=== PATIENT | male | born 1960 | race Caucasian/White ===

== ENCOUNTER 2017-09-28 18:02 | Emergency (ER) | payer MEDICARE ==
[~2017-09-28 18:02] MED LIST: FLUO10CA13 PO
--- NOTE | 2017-09-28 19:04 | RAD ---
Indication: Trauma. TECHNIQUE: CT head without IV contrast. CT maxillofacial bones without IV contrast. COMPARISON: None FINDINGS: CT HEAD: No pathologic extra-axial or intra-axial fluid collection. The ventricles and basal cisterns are within normal limits. No acute intracranial bleed. Mild diffuse cerebral and cerebellar atrophy. No focal loss of jefferson-white differentiation. No calvarial fractures. IMPRESSION: 1. No acute intracranial process on this noncontrast CT. 2. Mild diffuse atrophy. CT maxillofacial bones: No acute fractures. The lenses, globes, extraocular muscles and intraorbital fat are within normal limits. Soft tissue swelling and induration is seen superior to the right zygomatic arch. Inflammatory changes seen anterior to the right maxilla. The mandible and temporal mandibular joints are within normal limits. Mucous retention cyst or polyps are seen in the bilateral maxillary sinuses. Rest of the paranasal sinuses and mastoid air cells are clear. Visualized upper cervical spine is within normal limits. No bulky adenopathy. IMPRESSION: 1. Soft tissue swelling and induration superior to the right zygomatic arch and anterior to the right maxilla. 2. No fractures. 3. Bilateral maxillary sinus disease. Electronically signed by: Dany Davis DO (09/28/2017 7:01 PM) [facility]
[2017-09-28] MEDS ORDERED: NAPR-683 PO (19:23)
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
[2017-09-28] MEDS ORDERED: HYDROcodone/APAP 5/325MG 1 TAB TABLET PO ONE (19:30)
[2017-09-28 19:40] VITALS: BP 127/100
== END 2017-09-28 19:40 | disposition home or self-care (01) ==
LOC: ER 18:02
DX: S00.83XA Contusion of other part of head, initial encounter (principal); I10 Essential (primary) hypertension; I25.2 Old myocardial infarction; F17.210 Nicotine dependence, cigarettes, uncomplicated; Y04.0XXA Assault by unarmed brawl or fight, initial encounter; Y93.89 Activity, other specified; Y99.8 Other external cause status; Y92.89 Other specified places as the place of occurrence of the external cause
CPT/HCPCS: 70450; 70486; 99284-25

== ENCOUNTER 2021-03-20 08:22 | Emergency (ER) | payer MEDICARE ==
[~2021-03-20] VITALS: Ht 182.9 cm; Wt 90.9 kg
[~2021-03-20 08:22] MED LIST changes: +NAPR-683 PO
--- NOTE | 2021-03-20 08:43 | PHYS DOC ---
Past History Past Medical History: Hypertension, AL, Other Past Surgical History: No Surgical History Smoking: Cigarettes Alcohol Use: None Drug Use: None General Adult EDM: Chief Complaint: ALCOHOL INTOXICATION HPI: HPI: 60-year-old male presents via EMS for alcohol intoxication and chest pain. Patient has been drinking alcohol to the least midnight. His neighbor called EMS because he thought the patient was acting weird. Patient tells me that he has been falling a lot lately. He also had some chest discomfort this morning when EMS arrived. He was given 324 of aspirin. He tells me he is supposed to be on heart medications but does not taking any. He does not know what they are. 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 He denies stents or bypass. He has bruising near the right eye and the right shoulder that he states happened because of his falling. This bruising happened 2 days ago. Review of Systems: Review of Systems: Constitutional: Denies fever or chills. Intoxication. Eyes: Denies change in visual acuity HENT: Denies nasal congestion or sore throat Respiratory: Denies cough or shortness of breath Cardiovascular: Chest pain GI: Denies abdominal pain, nausea, vomiting, bloody stools or diarrhea : Denies dysuria Musculoskeletal: Denies back pain or joint pain Integument: Denies rash Neurologic: Denies headache, focal weakness or sensory changes Endocrine: Denies polyuria or polydipsia Lymphatic: Denies swollen glands Psychiatric: Intoxicated Current Medications: Current Meds: Current Medications Medications (Trade) Dose Ordered Sig/Amy Start Time Stop Time Status Last Admin Dose Admin Multivitamins/ Minerals 10 ml/ Folic Acid 1 mg/ Thiamine HCl 100 mg/Sodium Chloride 1,011.3 ml @ 1,000.187 mls/hr 1X ONCE 03/20/21 08:45 03/20/21 09:45 UNV Allergies: Allergies: Allergies Coded Allergies Type Severity Reaction Last Updated Verified No Known Drug Allergies 10/08/13 No Physical Exam: PE: Constitutional: Well developed, well nourished, no acute distress, intoxicated. [] HENT: Normocephalic, atraumatic, bilateral external ears normal, oropharynx moist, no oral exudates, nose normal. [] Eyes: PERRLA, EOMI, conjunctiva normal, no discharge. [] Neck: Normal range of motion, no tenderness, supple, no stridor. [] Cardiovascular: Heart rate 100, regular rhythm, no murmur [] Lungs & Thorax: Bilateral breath sounds clear to auscultation [] Abdomen: Bowel sounds normal, soft, no tenderness, no masses, no pulsatile masses. [] Skin: Ecchymosis of the right superior humerus and below the right eye [] Back: No tenderness, no CVA tenderness. [] Extremities: No tenderness, no cyanosis, no clubbing, ROM intact, no edema. [] Neurologic: Alert and oriented X 3, normal motor function, normal sensory function, no focal deficits noted. [] Psychologic: Affect intoxicated, mood normal. [] EKG: EKG: Sinus rhythm, rate 95, leftward axis, no ST elevation or depression. [] Radiology/Procedures: Radiology/Procedures: [] Heart Score: C/O Chest Pain: Yes HEART Score for Chest Pain: HEART Score for Chest Pain Response (Comments) Value History Slighlty/Non-Suspicious 0 Age >45 - < 65 1 Risk Factors 1 or 2 Risk Factors 1 Total 2 Risk Factors: Risk Factors: DM, Current or recent (<one month) smoker, HTN, HLP, family history of CAD, obesity. Risk Scores: Score 0 - 3: 2.5% MACE over next 6 weeks - Discharge Home Score 4 - 6: 20.3% MACE over next 6 weeks - Admit for Clinical Observation Score 7 - 10: 72.7% MACE over next 6 weeks - Early Invasive Strategies Course & Med Decision Making: Course & Med Decision Making Pertinent Labs and Imaging studies reviewed. (See chart for details) The patient appears to be quite intoxicated. I have ordered a banana bag. His labs are significant for potassium of 2.9. I ordered additional 40 mEq p.o. prior to discharge. The patient's alcohol level is just under 400. We will observe him in the emergency room while giving supportive care and fluids until he is clinically sober and able to ambulate on his own. The patient is able to ambulate on his own at this time. He has been in the ER for several hours. He would like to go home. He is stable for discharge at this time. We will send him home by taxi. [] Dragon Disclaimer: Dragon Disclaimer: This electronic medical record was generated, in whole or in part, using a voice recognition dictation system. Departure Departure: Impression: Primary Impression: Alcohol intoxication delirium Disposition: 01 HOME / SELF CARE / HOMELESS Condition: IMPROVED Referrals: MARTINE ARCHULETA MD (PCP) Patient Instructions: Alcohol Intoxication, [id number] PRAMOD FERRELL DO Mar 20, 2021 08:43
[2021-03-20 08:56] LABS: BASO # 0.1 x10^3/uL (0.0-0.2); BASO % 2 % (0-3); EOS # 0.3 x10^3/uL (0.0-0.7); EOS % 5 % (0-3); HEMATOCRIT 41.8 % (39.0-53.0); HEMOGLOBIN 14.4 g/dL (13.0-17.5); LYMPH # 2.8 x10^3/uL (1.0-4.8); LYMPH % 45 % (24-48); MEAN CORPUSCULAR HEMOGLOBIN 35 pg (25-35); MEAN CORPUSCULAR HGB CONC 35 g/dL (31-37); MEAN CORPUSCULAR VOLUME 101 fL (79-100); MONO # 0.8 x10^3/uL (0.0-1.1); MONO % 12 % (0-9); NEUT # 2.2 x10^3uL (1.8-7.7); NEUT % 35 % (31-73); PLATELET COUNT 218 x10^3/uL (140-400); RED BLOOD COUNT 4.15 x10^6/uL (4.30-5.70); RED CELL DISTRIBUTION WIDTH 13.5 % (11.5-14.5); WHITE BLOOD COUNT 6.2 x10^3/uL (4.0-11.0)
[2021-03-20] MEDS: MVI, ADULT NO.4 WITH VIT K 10 ML, FOLIC ACID INJ 1 MG, THIAMINE INJ 100 MG in IV NORMAL... IV ONE (09:20)
--- NOTE | 2021-03-20 09:20 | RAD ---
Exam performed: One view chest. Indication: Reason: CP / Spl. Instructions: / History: Date of Service: 03/20/2021 8:35 AM Comparison: None available. Single AP upright portable view chest findings: Cardiomediastinal silhouette is within limits of normal. No acute infiltrates, effusion or pneumotho rax is detected. The bony structures are normal. Impression: No acute cardiopulmonary process is detected. Electronically signed by: Dominga Hare MD (03/20/2021 9:17 AM) [id number]
--- NOTE | 2021-03-20 09:39 | RAD ---
STUDY: 1. CT head without contrast 2. CT maxillofacial without contrast INDICATION: Fall. Intoxication. COMPARISON: 09/28/2017 TECHNIQUE: Axial CT imaging of the head and maxillofacial structures performed without the use of int ravenous contrast. Sagittal and coronal reformats were obtained. One or more of the following individualized dose reduction techniques were utilized for this examinat ion: 1. Automated exposure control 2. Adjustment of the mA and/or kV according to patient size 3. Use of iterative reconstruction technique. FINDINGS: CT HEAD: No acute intracranial hemorrhage. No localized mass effect, midline shift or hydrocephalus. Moss-whit e matter differentiation is maintained. Somewhat age advanced generalized parenchymal volume loss but unchanged from the comparison. No depressed calvarial fracture. Normally aerated mastoid air cells and middle ears. CT MAXILLOFACIAL: No acute facial bone fracture. The orbital rims are intact. Symmetric positioning of the globes. No r etrobulbar hematoma. Premalar hematoma on the right. The partially imaged deeper spaces of the neck are unremarkable. No l ayering hemorrhage within the paranasal sinuses. Maxillary sinus mucosal thickening. Anatomic temporo mandibular joint alignment. The partially assessed upper cervical spine is intact. IMPRESSION: CT HEAD: 1. No acute intracranial abnormality by CT. Intact calvarium. CT MAXILLOFACIAL: 1. No acute facial bone fracture. 2. Premalar hematoma on the right. Unremarkable globes and retrobulbar soft tissues. Electronically signed by: TOY RODAS MD (03/20/2021 9:36 AM) [id number]
[2021-03-20 09:51] LABS: ALBUMIN 3.9 g/dL (3.4-5.0); CALCIUM 8.7 mg/dL (8.5-10.1); CREATININE 0.8 mg/dL (0.7-1.3); GFR 99.3; TOTAL BILIRUBIN 0.5 mg/dL (0.2-1.0); TOTAL PROTEIN 7.8 g/dL (6.4-8.2)
[2021-03-20 10:04] LABS: POTASSIUM 2.9 mmol/L (3.5-5.1)
[2021-03-20 10:34] LABS: BARBITURATES NEG (NEG); BENZODIAZEPINES NEG (NEG); CANNABINOIDS NEG (NEG); COCAINE NEG (NEG); METHADONE NEG (NEG); OPIATES NEG (NEG); PHENCYCLIDINE NEG (NEG)
[2021-03-20 10:35] LABS: AMPHETAMINE/METHAMPHETAMINE NEG (NEG)
[2021-03-20 10:37] LABS: BACTERIA,URINE 0 /HPF (0-FEW); BILIRUBIN,URINE NEG (NEG); CLARITY,URINE CLEAR; COLOR,URINE YELLOW; GLUCOSE,URINE NEG (NEG); NITRITE,URINE NEG (NEG); RBC,URINE 0 /HPF (0-2); SQUAMOUS EPITHELIAL CELL,UR OCC /LPF; UROBILINOGEN,URINE 0.2 mg/dL (0.2 mg/dL); WBC,URINE OCC /HPF (0-4)
[2021-03-20] MEDS: POTASSIUM CHLORIDE 20 MEQ TABLET.ER. PO ONE (12:55)
[2021-03-20 13:10] VITALS: BP 124/72
--- NOTE | 2021-03-20 19:47 | EKG ---
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
== END 2021-03-20 13:10 | disposition home or self-care (01) ==
LOC: ER 08:22
DX: F10.121 Alcohol abuse with intoxication delirium (principal); I10 Essential (primary) hypertension; F17.210 Nicotine dependence, cigarettes, uncomplicated; Y90.8 Blood alcohol level of 240 mg/100 ml or more
CPT/HCPCS: 36415; 70450; 70486; 71045; 80053; 80307; 81001; 84484; 85025; 93005; 96365; 99285; G0480; J7030

== ENCOUNTER 2021-03-23 23:27 | Emergency (ER) | payer MEDICARE ==
[~2021-03-23] VITALS: Ht 182.9 cm; Wt 90.9 kg
[2021-03-23] MEDS: MVI, ADULT NO.4 WITH VIT K 10 ML, THIAMINE INJ 100 MG in IV NORMAL SALINE 1,000ML 1,000... IV ONE (00:27)
--- NOTE | 2021-03-24 | PHYS DOC ---
Past History Past Medical History: Alcoholism, Hypertension, CT, Seizure (withdrawal (DTs)), Other Past Medical History Limited secondary to alcohol intoxication Past Surgical History: No Surgical History Past Surgical History Limited secondary to alcohol intoxication Smoking: Cigarettes Alcohol Use: Heavy Drug Use: None Social History Limited secondary to alcohol intoxication General Adult EDM: Chief Complaint: ALCOHOL INTOXICATION HPI: HPI: 60-year-old male presents via EMS with report of chest discomfort. Per EMS patient acutely intoxicated. Patient does history of alcohol abuse. Patient reportedly called EMS 33 times this evening. Patient reports he is out of his medications for the last 3 months. Patient reports he has not followed with a doctor in at least 6 months. Patient reports he has no transportation or money. Patient reports he has been trying to walk to get groceries and subsequently has fallen and injured his face. Patient reports he is not able to walk well. Patient reports he lives on a second floor and has difficulty getting up stairs. Patient denies use of blood thinners. Reports history of withdrawal seizures. History of present illness limited secondary to alcohol intoxication. Review of Systems: Review of Systems: Constitutional: Denies fever or chills Eyes: Denies redness or eye pain HENT: Denies nasal congestion or epistaxis Respiratory: Denies cough or shortness of breath Cardiovascular: Reports chest pain GI: Denies vomiting Musculoskeletal: Denies neck pain Integument: Reports facial bruising and swelling Neurologic: Reports headache and generalized weakness Review of systems limited secondary to alcohol intoxication Current Medications: Current Meds: Current Medications Medications (Trade) Dose Ordered Sig/[facility] Start Time Stop Time Status Last Admin Dose Admin Aspirin (Kenneth Aspirin) 325 mg 1X ONCE 03/23/21 23:45 03/23/21 23:46 DC Folic Acid (Folic Acid) 1 mg ONCE ONCE 03/23/21 23:45 03/23/21 23:46 DC Multivitamins/ Minerals 10 ml/ Thiamine HCl 100 mg/Sodium Chloride 1,011.3 ml @ 1,000.187 mls/hr 1X ONCE 03/23/21 23:45 03/24/21 00:45 Allergies: Allergies: Allergies Coded Allergies Type Severity Reaction Last Updated Verified No Known Drug Allergies 10/08/13 No Physical Exam: PE: Constitutional: Well developed, well nourished, no acute distress, non-toxic appearance, intoxicated HENT: Normocephalic, scattered facial bruising primary to right cheek, nares no rmal, bilateral mastoid process negative Eyes: PERRL, EOMI, conjunctiva injected bilaterally, no discharge, horizontal nystagmus Neck: No midline tenderness, supple Lungs & Thorax: No respiratory distress, equal chest rise and fall Abdomen: Soft, no tenderness; pelvis stable and nontender Skin: Warm, dry, no erythema, no rash Back: No midline tenderness, no CVA tenderness Extremities: No tenderness, ROM intact, no edema Neurologic: Alert but acutely intoxicated, normal motor function, normal sensory function, no focal deficits noted Psychologic: Affect animated, judgment abnormal EKG: EKG: @2340 NSR at 89bpm, NO ST elevation, QRS 84ms, QT/QTc 378/461ms Radiology/Procedures: Radiology/Procedures: PROCEDURE: PORTABLE CHEST 1V Single view chest dated 03/24/2021 12:02 AM: COMPARISON: 03/20/2021 Clinical Indication: Chest pain. Findings: Single upright portable exam of the chest was performed. Heart and mediastinal contours are stable. There is some mild patchy increased density at the right lung base, mildly increased from prior study. Prominent reticular nodular markin gs on the left have somewhat improved. No pleural effusion. No pneumothorax. IMPRESSION: 1. Mild patchy bibasilar opacities, similar to prior study, likely scar or atelectasis. No evidence of focal pneumonia. Electronically signed by: Vishnu Coats MD (03/24/2021 12:03 AM) [facility] PROCEDURE: CT MAXILLOFACIAL WITHOUT CONTRAST, CT HEAD AND C-SPINE WO Comparison: None. Clinical Indication: Reason: pain s/p fall, ETOH / Spl. Instructions: / History: . PAIN AFTER FALL Technical factors: Contiguous 5 mm axial images of the head were obtained from the skullbase to the vertex. No contrast was administered. In addition, 3 mm axial images of the cervical spine and maxillofacial bones were acquired with thin cut coronal and sagittal reconstructions. One or more of the following individualized dose reduction techniques were utilized for this examination: 1. Automated exposure control 2. Adjustment of the mA and/or kV according to patient size 3. Use of iterative reconstruction technique Findings head: Ventricles and sulci are mildly prominent for age. No midline shift or mass effect. Mild patchy low density in the deep/subcortical periventricular white matter. No hemorrhage or extra-axial collection. There is some vague low density in the central james. Posterior fossa unremarkable. No acute calvarial abnormality. IMPRESSION HEAD: 1. No acute intracranial hemorrhage or mass. 2. Mild chronic small vessel ischemic changes and atrophy. 3. There is some vague low density in the central james which could be related to chronic small vessel ischemic changes or central pontine myelolysis. Correlate clinically. Findings maxillofacial: Moderate mucosal thickening of the maxillary and ethmoid sinuses. Frontal and sphenoid sinuses are clear. Mastoid air cells are clear. No acute calvarial abnormality. Ostiomeatal units are patent. Orbital and maxillary persaud are intact. No displaced facial fracture. Zygomatic arches and mandible are intact. Slight deformity of the bilateral nasal bone without overlying soft tissue swelling, likely related to old healed fracture. There is a focal area of soft tissue swelling at the right cheek, likely a small hematoma measuring about 2.9 cm. Visualized soft tissue structures are otherwise unremarkable. IMPRESSION MAXILLOFACIAL: 1. Focal soft tissue hematoma at the right cheek with no evidence of underlying displaced facial fracture. 2. Moderate sinus disease. 3. Probable remote fracture of the bilateral nasal bone. Findings cervical spine: Images were acquired from the skull base to mid T4. There is straightening of the normal cervical lordosis, otherwise sagittal alignment is anatomic. Vertebral body heights are maintained. No prevertebral soft tissue swelling. Posterior elements are intact. No fractures are identified. Mild endplate hypertrophic changes throughout with multilevel mild to moderate uncovertebral spurring. Mild multilevel facet arthropathy. There is resultant mild bilateral foraminal narrowing at C4-C5. No apparent focal disc herniation o r significant central canal compromise. Visualized soft tissue structures are unremarkable. Limited images of lung apices are clear. IMPRESSION CERVICAL SPINE: 1. No evidence of fracture or malalignment. 2. Mild multilevel spondylosis. Electronically signed by: Vishnu Coats MD (03/24/2021 12:58 AM) [facility] Heart Score: C/O Chest Pain: Yes HEART Score for Chest Pain: HEART Score for Chest Pain Response (Comments) Value History Slighlty/Non-Suspicious 0 ECG Normal 0 Age >45 - < 65 1 Risk Factors >3 Risk Factors or Hx CAD 2 Troponin < Normal Limit 0 Total 3 Risk Factors: Risk Factors: DM, Current or recent (<one month) smoker, HTN, HLP, family history of CAD, obesity. Risk Scores: Score 0 - 3: 2.5% MACE over next 6 weeks - Discharge Home Score 4 - 6: 20.3% MACE over next 6 weeks - Admit for Clinical Observation Score 7 - 10: 72.7% MACE over next 6 weeks - Early Invasive Strategies Course & Med Decision Making: Course & Med Decision Making Pertinent Labs and Imaging studies reviewed. (See chart for details) Patient presents via EMS with report of chest discomfort and concerned that he has been out of his medications for the last 3 months. Patient is acutely intoxicated. Patient has history of alcoholism. EKG stable. Labs obtained and posted to chart. Troponin within normal limits. EtOH greater than 400. Chest x-ray without acute process. CT head/maxillofacial/cervical spine without acute fracture or dislocation. Right facial contusion/hematoma noted. Chest x-ray stable. Patient requests help withdrawing off of ETOH. Hx of prior delirium tremens. Given history of withdrawal seizures patient requiring medical admission for further evaluation and treatment. Discussed with Dr. Jones (hospitalist) who is in agreement with admission. Discussed findings and plan with patient, who acknowledges understanding and agreement. Dragon Disclaimer: Dragon Disclaimer: This electronic medical record was generated, in whole or in part, using a voice recognition dictation system. Departure Departure: Impression: Primary Impression: Alcohol abuse Additional Impressions: Chest pain Qualified Codes: R07.9 - Chest pain, unspecified Facial contusion Qualified Codes: S00.83XA - Contusion of other part of head, initial encounter Hx of fall Impending delirium tremens Disposition: ADMITTED INPATIENT Admitting Physician: Naseem Jones Condition: GUARDED Referrals: MARTINE ARCHULETA MD (PCP) Critical Care Time Critical care time was 30 minutes which includes time at bedside, spent in discussion of patient's care with specialists and/or family members, with interpretation of laboratory and/or radiological studies and is exclusive of procedures. VISHNU ADAME DO Mar 24, 2021 00:00
--- NOTE | 2021-03-24 00:05 | RAD ---
Single view chest dated 03/24/2021 12:02 AM: COMPARISON: 03/20/2021 Clinical Indication: Chest pain. Findings: Single upright portable exam of the chest was performed. Heart and mediastinal contours are stable. T here is some mild patchy increased density at the right lung base, mildly increased from prior study. Prominent reticular nodular markings on the left have somewhat improved. No pleural effusion. No pne umothorax. IMPRESSION: 1. Mild patchy bibasilar opacities, similar to prior study, likely scar or atelectasis. No evidence o f focal pneumonia. Electronically signed by: Vishnu Coats MD (03/24/2021 12:03 AM) [facility]
[2021-03-24 00:25] LABS: BASO # 0.1 x10^3/uL (0.0-0.2); BASO % 1 % (0-3); EOS # 0.4 x10^3/uL (0.0-0.7); EOS % 7 % (0-3); HEMATOCRIT 44.3 % (39.0-53.0); HEMOGLOBIN 15.1 g/dL (13.0-17.5); LYMPH % 37 % (24-48); MEAN CORPUSCULAR HEMOGLOBIN 35 pg (25-35); MEAN CORPUSCULAR HGB CONC 34 g/dL (31-37); MEAN CORPUSCULAR VOLUME 102 fL (79-100); MONO # 0.6 x10^3/uL (0.0-1.1); MONO % 10 % (0-9); NEUT # 2.5 x10^3uL (1.8-7.7); NEUT % 45 % (31-73); PLATELET COUNT 247 x10^3/uL (140-400); RED BLOOD COUNT 4.33 x10^6/uL (4.30-5.70); RED CELL DISTRIBUTION WIDTH 13.8 % (11.5-14.5); WHITE BLOOD COUNT 5.5 x10^3/uL (4.0-11.0)
[2021-03-24] MEDS: FOLIC ACID 1 MG TABLET PO ONE (00:27)
[2021-03-24 00:32] LABS: CALCIUM 8.6 mg/dL (8.5-10.1); CREATININE 0.9 mg/dL (0.7-1.3); GFR 86.7; POTASSIUM 3.9 mmol/L (3.5-5.1)
[2021-03-24 00:41] LABS: BARBITURATES NEG (NEG); BENZODIAZEPINES NEG (NEG); CANNABINOIDS NEG (NEG); COCAINE NEG (NEG); METHADONE NEG (NEG); OPIATES NEG (NEG); PHENCYCLIDINE NEG (NEG)
[2021-03-24 00:45] LABS: AMPHETAMINE/METHAMPHETAMINE NEG (NEG)
[2021-03-24 00:47] LABS: ALBUMIN 4.2 g/dL (3.4-5.0); ALBUMIN/GLOBULIN RATIO 1.2 (1.0-1.7); MAGNESIUM 2.3 mg/dL (1.8-2.4); TOTAL BILIRUBIN 0.3 mg/dL (0.2-1.0); TOTAL PROTEIN 7.8 g/dL (6.4-8.2)
[2021-03-24 00:49] LABS: BACTERIA,URINE 0 /HPF (0-FEW); BILIRUBIN,URINE NEG (NEG); CLARITY,URINE CLEAR; COLOR,URINE YELLOW; GLUCOSE,URINE NEG (NEG); NITRITE,URINE NEG (NEG); RBC,URINE 0 /HPF (0-2); UROBILINOGEN,URINE 0.2 mg/dL (0.2 mg/dL); WBC,URINE OCC /HPF (0-4)
--- NOTE | 2021-03-24 01:00 | RAD ---
CT MAXILLOFACIAL WITHOUT CONTRAST, CT HEAD AND C-SPINE WO dated 03/24/2021 12:10 AM. Comparison: None. Clinical Indication: Reason: pain s/p fall, ETOH / Spl. Instructions: / History: . PAIN AFTER FALL Technical factors: Contiguous 5 mm axial images of the head were obtained from the skullbase to the v ertex. No contrast was administered. In addition, 3 mm axial images of the cervical spine and maxillo facial bones were acquired with thin cut coronal and sagittal reconstructions. One or more of the following individualized dose reduction techniques were utilized for this examinat ion: 1. Automated exposure control 2. Adjustment of the mA and/or kV according to patient size 3. Use of iterative reconstruction technique Findings head: Ventricles and sulci are mildly prominent for age. No midline shift or mass effect. Mild patchy low d ensity in the deep/subcortical periventricular white matter. No hemorrhage or extra-axial collection. There is some vague low density in the central james. Posterior fossa unremarkable. No acute calvaria l abnormality. IMPRESSION HEAD: 1. No acute intracranial hemorrhage or mass. 2. Mild chronic small vessel ischemic changes and atrophy. 3. There is some vague low density in the central james which could be related to chronic small vessel ischemic changes or central pontine myelolysis. Correlate clinically. Findings maxillofacial: Moderate mucosal thickening of the maxillary and ethmoid sinuses. Frontal and sphenoid sinuses are cl ear. Mastoid air cells are clear. No acute calvarial abnormality. Ostiomeatal units are patent. Orbital and maxillary persaud are intact. No displaced facial fracture. Zygomatic arches and mandible a re intact. Slight deformity of the bilateral nasal bone without overlying soft tissue swelling, likel y related to old healed fracture. There is a focal area of soft tissue swelling at the right cheek, likely a small hematoma measuring a bout 2.9 cm. Visualized soft tissue structures are otherwise unremarkable. IMPRESSION MAXILLOFACIAL: 1. Focal soft tissue hematoma at the right cheek with no evidence of underlying displaced facial frac ture. 2. Moderate sinus disease. 3. Probable remote fracture of the bilateral nasal bone. Findings cervical spine: Images were acquired from the skull base to mid T4. There is straightening of the normal cervical merissa dosis, otherwise sagittal alignment is anatomic. Vertebral body heights are maintained. No prevertebr al soft tissue swelling. Posterior elements are intact. No fractures are identified. Mild endplate hypertrophic changes throughout with multilevel mild to moderate uncovertebral spurring . Mild multilevel facet arthropathy. There is resultant mild bilateral foraminal narrowing at C4-C5. No apparent focal disc herniation or significant central canal compromise. Visualized soft tissue structures are unremarkable. Limited images of lung apices are clear. IMPRESSION CERVICAL SPINE: 1. No evidence of fracture or malalignment. 2. Mild multilevel spondylosis. Electronically signed by: Vishnu Coast MD (03/24/2021 12:58 AM) [facility]
[2021-03-24] MEDS ORDERED: ONDANSETRON PF 4 MG/2 ML VIAL. IVP PRN (01:30)
[2021-03-24] MEDS: FAMOTIDINE 20 MG/2 ML VIAL IVP ONE (01:35)
[2021-03-24] MEDS: ASPIRIN 325 MG TABLET PO ONE (01:36)
--- NOTE | 2021-03-24 02:21 | EKG ---
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
[2021-03-24 03:20] VITALS: BP 90/55
[2021-03-24 03:50] VITALS: BP 98/68
[2021-03-24 10:20] VITALS: BP 122/68
[2021-03-24] MEDS ORDERED: CHLO25CA9 PO (13:07)
== END 2021-03-24 13:18 | disposition admitted as inpatient to this hospital (09) ==
LOC: ER 23:27
DX: S00.83XA Contusion of other part of head, initial encounter (principal); R07.89 Other chest pain; F10.239 Alcohol dependence with withdrawal, unspecified; I10 Essential (primary) hypertension; I25.2 Old myocardial infarction; F17.210 Nicotine dependence, cigarettes, uncomplicated; Z20.822 Contact with and (suspected) exposure to COVID-19; Y90.8 Blood alcohol level of 240 mg/100 ml or more; W18.39XA Other fall on same level, initial encounter; Y93.89 Activity, other specified; Y92.89 Other specified places as the place of occurrence of the external cause; Y99.8 Other external cause status
CPT/HCPCS: 36415; 70450; 70486; 71045; 72125; 80053; 80307; 81001; 82553; 83690; 83735; 83880; 84484; 85025; 87426; 93005; 96365; 96366; 96375; 96376; 99285; C9803; G0480; J2060; J3490; J7030; U0003

== ENCOUNTER 2021-03-28 15:39 | Emergency (ER) | payer MEDICARE ==
[~2021-03-28] VITALS: Ht 182.9 cm; Wt 90.9 kg
[~2021-03-28 15:39] MED LIST changes: +CHLO25CA9 PO
--- NOTE | 2021-03-28 16:09 | EKG ---
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
--- NOTE | 2021-03-28 17:33 | PHYS DOC ---
Past History Past Medical History: Alcoholism, Hypertension, [place], Seizure, Other Past Surgical History: No Surgical History Smoking: Cigarettes Alcohol Use: Heavy Drug Use: None General Adult EDM: Chief Complaint: MULTIPLE COMPLAINTS HPI: HPI: Patient is a 60-year-old male presents with EMS for chest pressure that started this morning. EMS states that patient continues to fall. Patient called EMS earlier this afternoon and said that he was going to stab himself. Upon arrival patient denies SI. Patient is intoxicated. Patient has bruising to right side of his face and swelling under his right eye. Patient's denying pain in all complaints at this time. Patient is alert and oriented. Review of Systems: Review of Systems: Constitutional: Denies fever or chills Eyes: Denies change in visual acuity HENT: Denies nasal congestion or sore throat Respiratory: Denies cough or shortness of breath Cardiovascular: Denies chest pain or edema GI: Denies abdominal pain, nausea, vomiting, bloody stools or diarrhea : Denies dysuria Musculoskeletal: Denies back pain or joint pain Integument: Denies rash Neurologic: Denies headache, focal weakness or sensory changes Endocrine: Denies polyuria or polydipsia Lymphatic: Denies swollen glands Psychiatric: Denies depression or anxiety Allergies: Allergies: Allergies Coded Allergies Type Severity Reaction Last Updated Verified No Known Drug Allergies 10/08/13 No Physical Exam: PE: Constitutional: Well developed, well nourished, no acute distress, non-toxic appearance. [] HENT: Normocephalic, atraumatic, bilateral external ears normal, oropharynx moist, no oral exudates, nose normal. [] Eyes: PERRLA, EOMI, conjunctiva normal, no discharge. [] Neck: Normal range of motion, no tenderness, supple, no stridor. [] Cardiovascular:Heart rate regular rhythm, no murmur [] Lungs & Thorax: Bilateral breath sounds clear to auscultation [] Abdomen: Bowel sounds normal, soft, no tenderness, no masses, no pulsatile masses. [] Skin: Bruising and swelling under right eye and above right eyebrow Back: No tenderness, no CVA tenderness. [] Extremities: No tenderness, no cyanosis, no clubbing, ROM intact, no edema. [] Neurologic: Alert and oriented X 3, normal motor function, normal sensory function, no focal deficits noted. [] Psychologic: Affect normal, judgement normal, mood normal. [] EKG: EKG: Sinus rhythm. Heart rate 86 bpm. No STEMI. Read at [address] Pappas. [] Radiology/Procedures: Radiology/Procedures: [] CT Head W/O Contrast: History: Reason: fall Comparison: none Axial images were obtained without contrast. There is moderate diffuse atrophy. There is no mass effect, extraaxial fluid collections or hydrocephalus. There is no focal loss of jefferson-white matter distinction to suggest acute isch emia, i.e. stroke. Impression: No acute findings. End impression CT maxillofacial without contrast History: sinus infection Axial helical images of the face were obtained without contrast. Axial and coronal reconstruction was performed. The nasal septum is mildly deviated to the right. The ostiomeatal complexes are narrow but patent. There is moderately compressive thickening inferiorly in the maxillary sinuses. There is a fracture left nasal ala. The orbits appear normal. There is a hematoma lateral to the right maxillary sinus. Impression: Fracture of the left nasal ala. End impression CT C-Spine without contrast: Clinical History: Reason: fall / Spl. Instructions: / History: Technique: Axial helical images of the cervical spine were obtained without contrast, axial coronal and sagittal reconstruction was performed. Findings: There is no loss of vertebral body stature. There is no prevertebral soft tissue swelling. The vertebral bodies are well aligned. There is straightening of the normal cervical lordosis which can be positional or could be chronic. The C1-C2 relationship is normal. The visualized osseous structures appear normal. Evaluation of the central canal is limited without contrast. There is multiple posterior disc bulges resulting in flattening of the thecal sac. There does not appear to be gross flattening of the cervical cord. There is moderate n arrowing of multiple neuroforamen. Impression: No acute findings. Clinical correlation suggested. PQRS Compliance Statement: One or more of the following individualized dose reduction techniques were utilized for this examination: 1. Automated exposure control 2. Adjustment of the mA and/or kV according to patient size 3. Use of iterative reconstruction technique Electronically signed by: Tai Ashley III, MD (03/28/2021 5:48 PM) [facility] Heart Score: C/O Chest Pain: Yes HEART Score for Chest Pain: HEART Score for Chest Pain Response (Comments) Value History Moderately Suspicious 1 ECG Normal 0 Age >45 - < 65 1 Risk Factors 1 or 2 Risk Factors 1 Total 3 Risk Factors: Risk Factors: DM, Current or recent (<one month) smoker, HTN, HLP, family history of CAD, obesity. Risk Scores: Score 0 - 3: 2.5% MACE over next 6 weeks - Discharge Home Score 4 - 6: 20.3% MACE over next 6 weeks - Admit for Clinical Observation Score 7 - 10: 72.7% MACE over next 6 weeks - Early Invasive Strategies Course & Med Decision Making: Course & Med Decision Making Pertinent Labs and Imaging studies reviewed. (See chart for details) [] 60-year-old male who presents from EMS with multiple falls. Patient has bruising to right side of forehead and under right eye. Patient denies pain or complaints on arrival to the ER. Patient is intoxicated. EMS reports patient called this afternoon and stated he was having chest pressure and was going to stab himself. Patient's denying chest pain, SI or HI. Patient is alert and oriented. Patient is refusing IV or labs to be drawn. CT head and neck along with maxillofacial CT ordered to rule out fractures and/or intracranial bleeding. Patient was being combative and screaming that he wanted food. Advised patient he would get food once we had CT resulted. Maxillofacial CT shows fracture of left nasal fracture. No intracranial bleeding or skull fracture seen. Airway patent. Discussed results with patient. Patient's alert and oriented. Patient is to follow-up with his PCP. Miguel Angel Disclaimer: Miguel Angel Disclaimer: This electronic medical record was generated, in whole or in part, using a voice recognition dictation system. Departure Departure: Impression: Primary Impression: Alcohol abuse Additional Impression: Fall Qualified Codes: W19.XXXA - Unspecified fall, initial encounter Disposition: HOME / SELF CARE / HOMELESS Condition: STABLE Referrals: MARTINE ARCHULETA MD (PCP) Patient Instructions: Alcohol Intoxication, [id number], Fall Prevention and Home Safety, [id number] Additional Instructions: EMERGENCY DEPARTMENT GENERAL DISCHARGE INSTRUCTIONS Thank you for coming to [facility] (ED) today and trusting us with you care. We trust that you had a positivie experience in our Emergency Department. If you wish to speak to the department management, you may call the director at [phone]. YOUR FOLLOW UP INSTRUCTIONS ARE FOLLOWS: 1. Do you have a private Doctor? If you do not have a private doctor, please ask for a resource list of physicians or clinics that may be able to assist you with follow up care. 2. The Emergency Physician has interpreted your x-rays. The X-Ray specialist will also review them. If there is a change in the findings, you will be notified in 48 hours when at all possible. 3. A lab test or culture has been done, your results will be reviewed and you will be notified if you need a change in treatment. ADDITIONAL INSTRUCTIONS AND INFORMATION: 1. Your care today has been supervised by a physician who is specially trained in emergency care. Many problems require more than one evaluation for a complete diagnosis and treatment. We recommend that you schedule your follow up appointment as recommended to ensure complete treatment of you illness or injury. If you are unable to obtain follow up care and continue to have a problem, or if your condition worsens, we recommend that you return to the ED. 2. We are not able to safely determine your condition over the phone nor are we able to give sound medical advice over the phone. For these safety reasons, if you call for medical advice we will ask you to come to the ED for further evaluation. 3. If you have any questions regarding these discharge instructions please call the ED at [phone]. SAFETY INFORMATION: In the interest of safety, wellness, and injury prevention; we encourage you to wear your sealbelt, if you smoke; quite smoking, and we encourage family to use a protective helmet for bicycling and other sporting events that present an increased risk for head injury. IF YOUR SYMPTOMS WORSEN OR NEW SYMPTOMS DEVELOP, OR YOU HAVE CONCERNS ABOUT YOUR CONDITION; OR IF YOUR CONDITION WORSENS WHILE YOU ARE WAITING FOR YOUR FOLLOW UP APPOINTMENT; EITHER CONTACT YOUR PRIMARY CARE DOCTOR, THE PHYSICIAN WHOSE NAME AND NUMBER YOU WERE GIVEN, OR RETURN TO THE ED IMMEDIATELY. MARLENA SEBASTIAN APRN Mar 28, 2021 17:33
--- NOTE | 2021-03-28 17:50 | RAD ---
CT Head W/O Contrast: History: Reason: fall Comparison: none Axial images were obtained without contrast. There is moderate diffuse atrophy. There is no mass effect, extraaxial fluid collections or hydrocep halus. There is no focal loss of jefferson-white matter distinction to suggest acute ischemia, i.e. stroke. Impression: No acute findings. End impression CT maxillofacial without contrast History: sinus infection Axial helical images of the face were obtained without contrast. Axial and coronal reconstruction was performed. The nasal septum is mildly deviated to the right. The ostiomeatal complexes are narrow but patent. Th ere is moderately compressive thickening inferiorly in the maxillary sinuses. There is a fracture lef t nasal ala. The orbits appear normal. There is a hematoma lateral to the right maxillary sinus. Impression: Fracture of the left nasal ala. End impression CT C-Spine without contrast: Clinical History: Reason: fall / Spl. Instructions: / History: Technique: Axial helical images of the cervical spine were obtained without contrast, axial coronal and sagittal reconstruction was performed. Findings: There is no loss of vertebral body stature. There is no prevertebral soft tissue swelling. The vert ebral bodies are well aligned. There is straightening of the normal cervical lordosis which can be p ositional or could be chronic. The C1-C2 relationship is normal. The visualized osseous structures ap pear normal. Evaluation of the central canal is limited without contrast. There is multiple posterio r disc bulges resulting in flattening of the thecal sac. There does not appear to be gross flattening of the cervical cord. There is moderate narrowing of multiple neuroforamen. Impression: No acute findings. Clinical correlation suggested. PQRS Compliance Statement: One or more of the following individualized dose reduction techniques were utilized for this examinat ion: 1. Automated exposure control 2. Adjustment of the mA and/or kV according to patient size 3. Use of iterative reconstruction technique Electronically signed by: Tai Ashley III, MD (03/28/2021 5:48 PM) [facility]
[2021-03-28 18:43] VITALS: BP 129/68
== END 2021-03-28 18:55 | disposition home or self-care (01) ==
LOC: ER 15:39
DX: S00.83XA Contusion of other part of head, initial encounter (principal); F10.20 Alcohol dependence, uncomplicated; R07.89 Other chest pain; R29.6 Repeated falls; I10 Essential (primary) hypertension; I25.2 Old myocardial infarction; F17.210 Nicotine dependence, cigarettes, uncomplicated; Y90.9 Presence of alcohol in blood, level not specified; W18.39XA Other fall on same level, initial encounter; Y93.89 Activity, other specified; Y92.89 Other specified places as the place of occurrence of the external cause; Y99.8 Other external cause status
CPT/HCPCS: 70450; 70486; 72125; 93005; 99285-25

== ENCOUNTER 2021-03-29 18:14 | Emergency (ER) | payer MEDICARE ==
[~2021-03-29] VITALS: Ht 182.9 cm; Wt 90.9 kg
[2021-03-29 18:16] VITALS: BP 129/68
--- NOTE | 2021-03-29 18:16 | PHYS DOC ---
Past History Past Medical History: Alcoholism, Hypertension, [place], Seizure, Other Past Surgical History: No Surgical History Smoking: Cigarettes Alcohol Use: Heavy Drug Use: None General Adult HPI: HPI: "...I am drunk.. I fell down.... some one call the police on me [place] drunk.. Cider Press Operator said I had to come in.. .. I am just drunk.. I was here yesterday....:"' Patient is a 60 year old male who presents with above hx and complaints alcohol intoxication and falling. Patient reported that he tripped and fell. Patient denies any injury denies any travel. Patient denies any specific ill contacts. Patient admits to drinking excessively. Patient was here yesterday for same type of problem. Patient police referral for being intoxicated in public. Patient only follows with Dr. Archuleta. Review of Systems: Review of Systems: Constitutional: Denies fever or chills Eyes: Denies change in visual acuity HENT: Denies nasal congestion or sore throat Respiratory: Denies cough or shortness of breath Cardiovascular: Denies chest pain or edema GI: Denies abdominal pain, nausea, vomiting, bloody stools or diarrhea : Denies dysuria Musculoskeletal: Denies back pain or joint pain Integument: Denies rash Neurologic: Denies headache, focal weakness or sensory changes Endocrine: Denies polyuria or polydipsia Lymphatic: Denies swollen glands Psychiatric: Denies depression or anxiety Family History: Family History: Noncontributory presentation Current Medications: Current Meds: See nursing for home meds Allergies: Allergies: Allergies Coded Allergies Type Severity Reaction Last Updated Verified No Known Drug Allergies 10/08/13 No Physical Exam: PE: Constitutional: , no acute distress, intoxicated in appearance. Smell of alcoholic beverages HENT: Normocephalic, atraumatic, bilateral external ears normal, oropharynx moist, no oral exudates, nose normal. Abrasion Eyes: PERRLA, EOMI, conjunctiva normal, no discharge. [] Neck: Normal range of motion, no tenderness, supple, no stridor. [] Cardiovascular:Heart rate regular rhythm, no murmur [] Lungs & Thorax: Bilateral breath sounds equal apex with scattered wheezes aus cultation [] Abdomen: Bowel sounds normal, soft, no tenderness, no masses, no pulsatile masses. [] Skin: Warm, dry, no erythema, no rash. [] Back: No tenderness, no CVA tenderness. [] Extremities: No tenderness, no cyanosis, no clubbing, ROM intact, no edema. [] Neurologic: Alert and oriented X 3, n, no focal deficits noted. Wide staggering gait. Mild Discoordinated. Automobile Body Repairer equal. DTRs +2. Distal sensory Psychologic: Affect intoxicated, judgement impaired, mood normal. [] EKG: EKG: My interpretation of EKG shows sinus rhythm 88 bpm no acute morphology. Mild leftward axis. [] Radiology/Procedures: Radiology/Procedures: [] Heart Score: C/O Chest Pain: No HEART Score for Chest Pain: HEART Score for Chest Pain Response (Comments) Value History Slighlty/Non-Suspicious 0 ECG Normal 0 Age < 45 0 Risk Factors 1 or 2 Risk Factors 1 Troponin < Normal Limit 0 Total 1 Risk Factors: Risk Factors: DM, Current or recent (<one month) smoker, HTN, HLP, family history of CAD, obesity. Risk Scores: Score 0 - 3: 2.5% MACE over next 6 weeks - Discharge Home Score 4 - 6: 20.3% MACE over next 6 weeks - Admit for Clinical Observation Score 7 - 10: 72.7% MACE over next 6 weeks - Early Invasive Strategies Course & Med Decision Making: Course & Med Decision Making Pertinent Labs and Imaging studies reviewed. (See chart for details) Pt. encouraged to stop alcohol abuse, or at least reducei intake. Pt. to consider in pt. program , following at [facility] [phone]/ [phone]. Folllow up with primary. Review ED workup and HTN control. Impression: 1. Alcohol intoxication 2. Police referral 3. Falling 4. HTN [] Dragon Disclaimer: Dragon Disclaimer: This electronic medical record was generated, in whole or in part, using a voice recognition dictation system. Departure Departure: Referrals: MARTINE ARCHULETA MD (PCP) ZAN MCKEON MD Mar 29, 2021 18:16
[2021-03-29] MEDS ORDERED: IV RINGERS SOLUTION,LACTATED 1,000 ML IV SCH (18:45)
[2021-03-29] MEDS ORDERED: FOLIC ACID 1 MG TABLET PO ONE (19:15)
[2021-03-29] MEDS ORDERED: MAGNESIUM HYDROXIDE 2,400 MG/30 ML ORAL.SUSP. PO ONE (19:15)
[2021-03-29] MEDS ORDERED: MVI, ADULT NO.4 WITH VIT K 10 ML, FOLIC ACID INJ 1 MG, THIAMINE INJ 100 MG in IV RINGER... IV ONE (19:15)
[2021-03-29] MEDS ORDERED: THIAMINE 100 MG TABLET. PO ONE (19:15)
[2021-03-29 19:31] LABS: BASO # 0.1 x10^3/uL (0.0-0.2); BASO % 2 % (0-3); EOS # 0.1 x10^3/uL (0.0-0.7); EOS % 3 % (0-3); HEMATOCRIT 41.6 % (39.0-53.0); LYMPH # 1.6 x10^3/uL (1.0-4.8); LYMPH % 33 % (24-48); MEAN CORPUSCULAR HEMOGLOBIN 35 pg (25-35); MEAN CORPUSCULAR HGB CONC 34 g/dL (31-37); MEAN CORPUSCULAR VOLUME 102 fL (79-100); MONO # 0.5 x10^3/uL (0.0-1.1); MONO % 10 % (0-9); NEUT # 2.6 x10^3uL (1.8-7.7); NEUT % 52 % (31-73); PLATELET COUNT 196 x10^3/uL (140-400); RED BLOOD COUNT 4.06 x10^6/uL (4.30-5.70); RED CELL DISTRIBUTION WIDTH 13.8 % (11.5-14.5); WHITE BLOOD COUNT 4.9 x10^3/uL (4.0-11.0)
[2021-03-29 19:33] LABS: CALCIUM 8.6 mg/dL (8.5-10.1); CREATININE 0.7 mg/dL (0.7-1.3); GFR 115.8
[2021-03-29 19:38] LABS: BARBITURATES NEG (NEG); BENZODIAZEPINES NEG (NEG); CANNABINOIDS NEG (NEG); COCAINE NEG (NEG); METHADONE NEG (NEG); OPIATES NEG (NEG); PHENCYCLIDINE NEG (NEG)
[2021-03-29 19:41] LABS: AMPHETAMINE/METHAMPHETAMINE NEG (NEG)
[2021-03-29 19:45] LABS: ALBUMIN 3.8 g/dL (3.4-5.0); DIRECT BILIRUBIN 0.1 mg/dL (0.0-0.2); MAGNESIUM 2.2 mg/dL (1.8-2.4); TOTAL BILIRUBIN 0.3 mg/dL (0.2-1.0); TOTAL PROTEIN 7.3 g/dL (6.4-8.2)
[2021-03-29 19:53] LABS: BILIRUBIN,URINE NEG (NEG); CLARITY,URINE CLEAR; COLOR,URINE YELLOW; GLUCOSE,URINE NEG (NEG); NITRITE,URINE NEG (NEG); UROBILINOGEN,URINE 0.2 mg/dL (0.2 mg/dL)
[2021-03-29 19:54] LABS: BACTERIA,URINE 0 /HPF (0-FEW); RBC,URINE 0 /HPF (0-2); WBC,URINE OCC /HPF (0-4)
--- NOTE | 2021-03-30 04:06 | EKG ---
[facility] [address] [place] [address] Test Date: 2021-03-29 Test Time: 18:49:45 Pat Name: GAVINO CHRISTENSEN Department: Room: Gender: Post Secondary Professional: LINO : 1960 Requested By: ZAN MCKEON Order Number: [id number] Reading MD: Abner Up MD Measurements Intervals [place] Rate: 88 P: 24 NM: 184 QRS: -3 QRSD: 84 T: 38 QT: 368 QTc: 449 Interpretive Statements SINUS RHYTHM Electronically Signed On 04-05-2021 11:56:28 CDT by Abner Up MD
== END 2021-03-29 21:29 | disposition home or self-care (01) ==
LOC: ER 18:14
DX: F10.229 Alcohol dependence with intoxication, unspecified (principal); I10 Essential (primary) hypertension; I25.2 Old myocardial infarction; F17.210 Nicotine dependence, cigarettes, uncomplicated; Y90.8 Blood alcohol level of 240 mg/100 ml or more; W01.0XXA Fall on same level from slipping, tripping and stumbling without subsequent striking against object, initial encounter; Y93.89 Activity, other specified; Y92.89 Other specified places as the place of occurrence of the external cause; Y99.8 Other external cause status
CPT/HCPCS: 36415; 80048; 80076; 80307; 81001; 82550; 83735; 83880; 84484; 85025; 93005; 96365; 96366; 99284; G0480; J7120; 99285-25

== ENCOUNTER → 2021-03-30 | Emergency (ER) | payer MEDICARE ==
[~2021-03-30] VITALS: Ht 182.9 cm; Wt 90.9 kg
[2021-03-30 23:17] VITALS: BP 129/93
== END | disposition left against medical advice (07) ==
LOC: ER 23:05
DX: Z53.21 Procedure and treatment not carried out due to patient leaving prior to being seen by health care provider (principal)

== ENCOUNTER 2021-04-02 15:34 | Emergency (ER) | payer MEDICARE ==
[~2021-04-02] VITALS: Ht 182.9 cm; Wt 90.9 kg
--- NOTE | 2021-04-02 15:39 | PHYS DOC ---
Past History Past Medical History: Alcoholism, Hypertension, [place], Seizure, Other Past Surgical History: No Surgical History Smoking: Cigarettes Alcohol Use: Heavy Drug Use: None Adult General Chief Complaint Chief Complaint: MECHANICAL FALL HPI HPI Patient is a 60-year-old male presenting via EMS for a fall. This was witnessed. Patient has a known history of this, is a known alcohol abuser. Was at local liquor store and states he tripped over his feet while trying to turn around backwards, denies any lightheadedness, dizziness, vision changes or other concerning findings prior to the fall. Simply states that he just fell while walking backwards. Reports he tumbled and hit the back of his posterior occiput on the ground which he believes was tile. No loss of consciousness but given the fall, bystanders called EMS. On arrival, patient was found to be hemodynamically stable. Reporting posterior neck and head pain at this time only. He was hemodynamically stable and transported to our facility. On arrival he has no complaints. States his head and neck pain have improved. Reports he drinks Seagrams and other hard alcoholic beverages daily, actually has not had a drink today hence why he was at the liquor store. Review of Systems Review of Systems Fourteen body systems of review of systems have been reviewed. See HPI for pertinent positives and negative responses, other rueda all other systems are negative, non-pertinent or non-contributory Allergies Allergies Allergies Coded Allergies Type Severity Reaction Last Updated Verified No Known Drug Allergies 10/08/13 No Physical Exam Physical Exam HEENT: Head: Normocephalic with superficial abrasion to midline and right side of posterior occiput External ears unremarkable Conjunctivae and EOM are normal. Pupils are equal, round, and reactive to light. Oropharynx is clear and moist. No hematomas or lacerations or abrasions to face or scalp OP clear, no blood, no malocclusion, dentition intact Nares clear, no nasal septal hematoma Midface stable, flushed face Neck: C-spine midline nontender, no step-offs, in c-collar on arrival Cardiovascular: Normal rate, regular rhythm and normal heart sounds. Pulmonary/Chest: Effort normal and breath sounds normal. No respiratory distress. No wheezes. CTA bilaterally Abdominal: Soft. Bowel sounds are normal. Pt exhibits no distension. There is no tenderness. Musculoskeletal: No bony tenderness to extremities, no deformities, full ROM extremities Chest wall stable Pelvis stable and non-tender No vertebral TTP and spine without stepoffs Neurological: Pt is alert and oriented to person, place, and time. Moving all extremities willfully, able to wiggle all fingers and toes Alert and oriented x 3 Motor and sensation intact No saddle anesthesia Cranial nerves II through XII intact Skin: Skin is warm and dry. No lacerations, posterior head abrasion as noted above Psychiatric: Behavior is appropriate for situation Current Patient Data Vital Signs Vital Signs Date Time Temp Pulse Resp B/P (MAP) Pulse Ox O2 Delivery O2 Flow Rate FiO2 04/02/21 15:41 98.2 97 18 151/94 (113) 98 Room Air Vital Signs Date Time Temp Pulse Resp B/P (MAP) Pulse Ox O2 Delivery O2 Flow Rate FiO2 04/02/21 15:41 98.2 97 18 151/94 (113) 98 Room Air EKG EKG [] Radiology/Procedures Radiology/Procedures CT HEAD AND C-SPINE WO Clinical indications: Reason: etoh ABUSE, FALL TO BACK ON HEAD WITH ABRASION / Spl. Instructions: / History: NONCONTRAST HEAD CT Technique: Noncontrast axial cross sectional scanning of the head was performed. PQRS compliance Statement One or more of the following individualized dose reduction techniques were utilized for this study: 1. Automated exposure control 2. Adjustment of the mA and/or kV according to patient size 3. Use of iterative reconstruction technique COMPARISON: March 28, 2021. Findings: No acute intracranial hemorrhage or midline shift or mass-effect or hydrocephalus or extra-axial fluid collection is seen. No new focal hypodense area or sulci effacement is seen to indicate an acute infarct or edema radiographically. There is a new small subcutaneous soft tissue hematoma of the posterior left parietal region near the vertex. No skull fracture or pne umocephalus is seen. No opacification of the mastoid sinuses or the middle ear cavities is seen. There is mucosal thickening of the floor of both maxillary sinuses. Again seen is a right facial subcutaneous soft tissue hematoma which could be seen on the previous study of March 28, 2021. IMPRESSION: No acute intracranial abnormality is seen. CERVICAL SPINE CT WITHOUT CONTRAST: TECHNIQUE: Noncontrast helical CT scanning of the cervical spine was performed. Multiplanar 2-D reconstructions were generated. FINDINGS: No acute fracture or discitis or lytic process is evident. No perching of facet joints is evident. Spinous processes are intact. No prominent focal disc protrusion or tight spinal canal stenosis is seen. No prevertebral soft tissue swelling is evident. IMPRESSION: No acute fracture. Electronically signed by: Román Anders MD (04/02/2021 4:26 PM) [id number] Heart Score C/O Chest Pain: No Risk Factors: Risk Factors: DM, Current or recent (<one month) smoker, HTN, HLP, family history of CAD, obesity. Risk Scores: Risk Factors: DM, Current or recent (<one month) smoker, HTN, HLP, family history of CAD, obesity. Course & Med Decision Making Course & Med Decision Making ABCs unremarkable. I disclosed entirety of ER findings and discussed most likely diagnosis of mechanical fall with occiput abrasion. Other diagnoses were discussed with patient such as subdural bleed, stroke, ACS or other concerning organic pathology but all deemed less likely causes of patient's presentation. Plan of care discussed at length with need for close outpatient follow-up to review today's ER visit stressed. Strict return precautions were also discussed at length with good understanding verbalized by patient. Patient voiced understanding and agreement with the plan. Patient knows to come back for repeat evaluation if concerning signs or symptoms present prior to outpatient follow- up. Hemodynamically stable, ambulatory and well-appearing at time of disposition. Dragon Disclaimer Dragon Disclaimer This electronic medical record was generated, in whole or in part, using a voice recognition dictation system. Departure Departure: Impression: Primary Impression: Fall Additional Impressions: Alcohol abuse Abrasion of head Disposition: 01 HOME / SELF CARE / HOMELESS Condition: STABLE Referrals: MARTINE ARCHULETA MD (PCP) Patient Instructions: Abrasion, [id number] Additional Instructions: You are seen in the ER for a mechanical fall. Your vital signs, physical exam and comprehensive ER work-up was nonconcerning for any emergent or surgical issues. You do have an abrasion to the posterior portion of your head but this did not require any significant intervention. It is imperative that you contact your primary care physician after ER departure to review ER visit and need for close outpatient follow-up. Any concerning signs or symptoms present prior to outpatient follow-up please do not hesitate to come back for repeat evaluation. Is a pleasure to take care of you and I wish you the best going forward Problem Qualifiers URIEL PATINO DO Apr 02, 2021 15:39
--- NOTE | 2021-04-02 16:29 | RAD ---
CT HEAD AND C-SPINE WO Clinical indications: Reason: etoh ABUSE, FALL TO BACK ON HEAD WITH ABRASION / Spl. Instructions: / History: NONCONTRAST HEAD CT Technique: Noncontrast axial cross sectional scanning of the head was performed. PQRS compliance Statement One or more of the following individualized dose reduction techniques were utilized for this study: 1. Automated exposure control 2. Adjustment of the mA and/or kV according to patient size 3. Use of iterative reconstruction technique COMPARISON: March 28, 2021. Findings: No acute intracranial hemorrhage or midline shift or mass-effect or hydrocephalus or extra- axial fluid collection is seen. No new focal hypodense area or sulci effacement is seen to indicate a n acute infarct or edema radiographically. There is a new small subcutaneous soft tissue hematoma of the posterior left parietal region near the vertex. No skull fracture or pneumocephalus is seen. No o pacification of the mastoid sinuses or the middle ear cavities is seen. There is mucosal thickening o f the floor of both maxillary sinuses. Again seen is a right facial subcutaneous soft tissue hematoma which could be seen on the previous study of March 28, 2021. IMPRESSION: No acute intracranial abnormality is seen. CERVICAL SPINE CT WITHOUT CONTRAST: TECHNIQUE: Noncontrast helical CT scanning of the cervical spine was performed. Multiplanar 2-D recon structions were generated. FINDINGS: No acute fracture or discitis or lytic process is evident. No perching of facet joints is e vident. Spinous processes are intact. No prominent focal disc protrusion or tight spinal canal stenos is is seen. No prevertebral soft tissue swelling is evident. IMPRESSION: No acute fracture. Electronically signed by: Román Anders MD (04/02/2021 4:26 PM) [id number]
[2021-04-02 16:49] VITALS: BP 151/92
== END 2021-04-02 16:55 | disposition home or self-care (01) ==
LOC: ER 15:34
DX: S00.81XA Abrasion of other part of head, initial encounter (principal); I10 Essential (primary) hypertension; M54.2 Cervicalgia; F17.210 Nicotine dependence, cigarettes, uncomplicated; F10.10 Alcohol abuse, uncomplicated; Y90.8 Blood alcohol level of 240 mg/100 ml or more; W18.00XA Striking against unspecified object with subsequent fall, initial encounter; Y93.89 Activity, other specified; Y92.89 Other specified places as the place of occurrence of the external cause; Y99.8 Other external cause status
CPT/HCPCS: 70450; 72125; 99285-25

== ENCOUNTER 2021-04-03 07:55 | Emergency (ER) | payer MEDICARE ==
[~2021-04-03] VITALS: Ht 182.9 cm; Wt 90.9 kg
[2021-04-03 08:01] VITALS: BP 151/92
--- NOTE | 2021-04-03 08:05 | PHYS DOC ---
Past History Past Medical History: Alcoholism, Hypertension, [place], Seizure, Other Past Surgical History: No Surgical History Smoking: Cigarettes Alcohol Use: Heavy Drug Use: None Adult General Chief Complaint Chief Complaint: ALCOHOL INTOXICATION HPI HPI Patient is a 60-year-old male presenting for chest pain. He is well-known to our department, this is his seventh visit in this past 16 days and second in the past 24 hours, I saw him 12 hours ago for alcohol-related fall. Reports today via EMS for chest pain. States 2 hours ago he was doing push-ups at home when he developed chest pain. He cannot describe the chest pain to me, states he has no chest pain now on arrival. Admits he has history of coronary artery disease but cannot elaborate on this. States he called EMS because he was concerned he was having a heart attack. He does admit he has drank heavily since I last saw him approximately 12 hours prior, cannot disclose quantity consumed. Denies any falls, trauma, loss of consciousness, fever, ripping or tearing sensation in chest Review of Systems Review of Systems Fourteen body systems of review of systems have been reviewed. See HPI for pertinent positives and negative responses, other rueda all other systems are negative, non-pertinent or non-contributory Allergies Allergies Allergies Coded Allergies Type Severity Reaction Last Updated Verified No Known Drug Allergies 10/08/13 No Physical Exam Physical Exam Constitutional: Well developed, flushed face, age-appropriate, appears intoxicated HENT: Normocephalic, atraumatic, bilateral external ears normal, oropharynx moist with poor dentition globally, no oral exudates, nose normal. Eyes: PERRLA, EOMI, conjunctiva normal, no discharge. Neck: Normal range of motion, no tenderness, supple, no stridor. Cardiovascular: Heart rate regular, sinus rhythm, no murmurs rubs or gallops Lungs & Thorax: Bilateral breath sounds clear to auscultation Abdomen: Bowel sounds normal, soft, no tenderness, no masses, no pulsatile masses. Nonsurgical abdomen, no peritoneal signs Skin: Warm, dry, no erythema, no rash. Abrasion noted to the posterior portion of occiput Back: No tenderness, no CVA tenderness. Extremities: No tenderness, no cyanosis, no clubbing, ROM intact, no edema. Neurologic: Alert and oriented X 3, grossly normal motor & sensory function, no focal deficits noted. Psychologic: Affect normal, judgement normal, mood normal. Current Patient Data Vital Signs Vital Signs Date Time Temp Pulse Resp B/P (MAP) Pulse Ox O2 Delivery O2 Flow Rate FiO2 04/03/21 08:01 98.3 74 16 151/92 (111) 98 Room Air Vital Signs Date Time Temp Pulse Resp B/P (MAP) Pulse Ox O2 Delivery O2 Flow Rate FiO2 04/03/21 08:01 98.3 74 16 151/92 (111) 98 Room Air Lab Results Laboratory Tests Test 04/03/21 08:36 White Blood Count 6.2 x10^3/uL Red Blood Count 4.36 x10^6/uL Hemoglobin 15.2 g/dL Hematocrit 44.8 % Mean Corpuscular Volume 103 fL Mean Corpuscular Hemoglobin 35 pg Mean Corpuscular Hemoglobin Concent 34 g/dL Red Cell Distribution Width 13.7 % Platelet Count 160 x10^3/uL Neutrophils (%) (Auto) 58 % Lymphocytes (%) (Auto) 26 % Monocytes (%) (Auto) 11 % Eosinophils (%) (Auto) 4 % Basophils (%) (Auto) 1 % Neutrophils # (Auto) 3.6 x10^3uL Lymphocytes # (Auto) 1.6 x10^3/uL Monocytes # (Auto) 0.7 x10^3/uL Eosinophils # (Auto) 0.3 x10^3/uL Basophils # (Auto) 0.1 x10^3/uL Sodium Level 134 mmol/L Potassium Level 3.5 mmol/L Chloride Level 99 mmol/L Carbon Dioxide Level 20 mmol/L Anion Gap 15 Blood Urea Nitrogen 4 mg/dL Creatinine 0.7 mg/dL Estimated GFR (Cockcroft-Gault) 115.8 BUN/Creatinine Ratio 6 Glucose Level 87 mg/dL Calcium Level 8.5 mg/dL Magnesium Level 2.2 mg/dL Total Bilirubin 0.5 mg/dL Aspartate Amino Transf (AST/SGOT) 79 U/L Alanine Aminotransferase (ALT/SGPT) 57 U/L Alkaline Phosphatase 64 U/L Troponin I Quantitative < 0.017 ng/mL [id number]-[id number]-H-Type Natriuretic Peptide 292 pg/mL Total Protein 7.9 g/dL Albumin 3.8 g/dL Albumin/Globulin Ratio 0.9 Ethyl Alcohol Level 329 mg/dL Current Medications Medications (Trade) Dose Ordered Sig/Amy Route PRN Reason Start Time Stop Time Status Last Admin Dose Admin Aspirin (Aspirin Chewable) 324 mg 1X ONCE PO 04/03/21 08:15 04/03/21 08:16 DC EKG EKG EKG ordered and interpreted by myself 0805 hrs. as sinus rhythm at 91 bpm, left axis deviation, no obvious ischemic findings, no STEMI Radiology/Procedures Radiology/Procedures XR CHEST 1V History: Chest pain Comparison: 03/23/2021, 03/20/2021 Technique: Portable AP radiograph of the chest. Findings: Adequate inflation, no consolidation, pleural effusion or pneumothorax. Cardiac mediastinal silhouette and pulmonary vasculature are within normal limits. No acute osseous abnormality. Soft tissues are unremarkable. Impression: 1. No acute cardiopulmonary process. Electronically signed by: Jerome Le MD (04/03/2021 8:48 AM) [facility] Heart Score C/O Chest Pain: Yes HEART Score for Chest Pain: HEART Score for Chest Pain Response (Comments) Value History Slighlty/Non-Suspicious 0 ECG Normal 0 Age >45 - < 65 1 Risk Factors 1 or 2 Risk Factors 1 Total 2 Risk Factors: Risk Factors: DM, Current or recent (<one month) smoker, HTN, HLP, family history of CAD, obesity. Risk Scores: Risk Factors: DM, Current or recent (<one month) smoker, HTN, HLP, family history of CAD, obesity. Course & Med Decision Making Course & Med Decision Making ABCs unremarkable. I disclosed entirety of ER findings and discussed most likely diagnosis of chest pain of unknown etiology. Other diagnoses were discussed with patient such as ACS, pulmonary embolism and other potentially emergent diagnoses but all deemed less likely causes of patient's presentation. I disclosed and recommended need for cardiac observation but patient declined. Patient stating he just wanted to go home which I feel is amenable. He is aware that by hospital discharge I could not definitively exclude any emergent or surgical issues that may be going on with him. Patient has been abusing 911 recently in addition to making frequent trips to our ER. I educated patient on not unnecessarily abusing the healthcare system and over saturating and already taxed healthcare system. Plan of care discussed at length with need for close outpatient follow-up to review today's ER visit stressed. Strict return precautions were also discussed at length with good understanding verbalized by patient. Patient voiced understanding and agreement with the plan. Patient knows to come back for repeat evaluation if concerning signs or symptoms present prior to outpatient follow-up. Hemodynamically stable, ambulatory and well-appearing at time of disposition. Dragon Disclaimer Dragon Disclaimer This electronic medical record was generated, in whole or in part, using a voice recognition dictation system. Departure Departure: Impression: Primary Impression: Chest pain, unspecified Additional Impression: Alcohol abuse Disposition: HOME / SELF CARE / HOMELESS Condition: STABLE Referrals: MARTINE ARCHULETA MD (PCP) Additional Instructions: You were seen for chest pain. Your workup did not show any acute abnormalities today, but does not indicate that you do not have underlying cardiovascular disease. You do need to follow up with your primary doctor and potentially a dude wrangler for further evaluation and treatment. You should return to the ED if you develop worsening chest pain, shortness of breath, fever, abnormal sweating, leg swelling, or any other new or concerning symptoms. Problem Qualifiers URIEL PATINO DO Apr 03, 2021 08:05
--- NOTE | 2021-04-03 08:10 | EKG ---
[address] [address] Test Date: 2021-04-03 Test Time: 07:57:40 Pat Name: GAVINO CHRISTENSEN Department: Room: Gender: M Financial Associate: LISANDRO : 1960 Requested By: URIEL PATINO Order Number: [id number] Reading MD: Abner Up MD Measurements Intervals [place] Rate: 91 P: -39 MT: 130 QRS: -7 QRSD: 84 T: 28 QT: 372 QTc: 459 Interpretive Statements SINUS RHYTHM Electronically Signed On 04-05-2021 10:36:38 CDT by Abner Up MD
[2021-04-03] MEDS ORDERED: ASPIRIN CHEWABLE 81 MG TABLET. PO ONE (08:15)
--- NOTE | 2021-04-03 08:50 | RAD ---
XR CHEST 1V History: Chest pain Comparison: 03/23/2021, 03/20/2021 Technique: Portable AP radiograph of the chest. Findings: Adequate inflation, no consolidation, pleural effusion or pneumothorax. Cardiac mediastinal silhouett e and pulmonary vasculature are within normal limits. No acute osseous abnormality. Soft tissues are unremarkable. Impression: 1. No acute cardiopulmonary process. Electronically signed by: Jerome Le MD (04/03/2021 8:48 AM) [facility]
[2021-04-03 08:54] LABS: BASO # 0.1 x10^3/uL (0.0-0.2); BASO % 1 % (0-3); EOS # 0.3 x10^3/uL (0.0-0.7); EOS % 4 % (0-3); HEMATOCRIT 44.8 % (39.0-53.0); HEMOGLOBIN 15.2 g/dL (13.0-17.5); LYMPH # 1.6 x10^3/uL (1.0-4.8); LYMPH % 26 % (24-48); MEAN CORPUSCULAR HEMOGLOBIN 35 pg (25-35); MEAN CORPUSCULAR HGB CONC 34 g/dL (31-37); MEAN CORPUSCULAR VOLUME 103 fL (79-100); MONO # 0.7 x10^3/uL (0.0-1.1); MONO % 11 % (0-9); NEUT # 3.6 x10^3uL (1.8-7.7); NEUT % 58 % (31-73); PLATELET COUNT 160 x10^3/uL (140-400); RED BLOOD COUNT 4.36 x10^6/uL (4.30-5.70); RED CELL DISTRIBUTION WIDTH 13.7 % (11.5-14.5); WHITE BLOOD COUNT 6.2 x10^3/uL (4.0-11.0)
[2021-04-03 09:09] LABS: CALCIUM 8.5 mg/dL (8.5-10.1); CREATININE 0.7 mg/dL (0.7-1.3); GFR 115.8; POTASSIUM 3.5 mmol/L (3.5-5.1)
[2021-04-03 09:22] LABS: ALBUMIN 3.8 g/dL (3.4-5.0); ALBUMIN/GLOBULIN RATIO 0.9 (1.0-1.7); MAGNESIUM 2.2 mg/dL (1.8-2.4); TOTAL BILIRUBIN 0.5 mg/dL (0.2-1.0); TOTAL PROTEIN 7.9 g/dL (6.4-8.2)
== END 2021-04-03 10:01 | disposition home or self-care (01) ==
LOC: ER 07:55
DX: R07.89 Other chest pain (principal); F10.10 Alcohol abuse, uncomplicated; I10 Essential (primary) hypertension; F17.210 Nicotine dependence, cigarettes, uncomplicated; Y90.8 Blood alcohol level of 240 mg/100 ml or more
CPT/HCPCS: 36415; 71045; 80053; 83735; 83880; 84484; 85025; 93005; 99285; G0480

== ENCOUNTER 2021-04-10 02:01 | Emergency (ER) | payer MEDICARE ==
[~2021-04-10] VITALS: Ht 182.9 cm; Wt 88.0 kg
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
[2021-04-10] MEDS ORDERED: MUPIROCIN 2% TOPICAL OINTMENT 22GM TUBE. TP ONE (02:30)
[2021-04-10] MEDS ORDERED: DIPH,PERTUSS(ACELL),TET VAC/PF 0.5 ML SYRINGE. VAX IM ONE (02:30)
[2021-04-10] MEDS ORDERED: LIDOCAINE 2%/EPI 1:100,000 20 ML VIAL. IJ ONE (02:30)
--- NOTE | 2021-04-10 02:55 | RAD ---
EXAMINATION: XR FOREARM_RIGHT 2 VIEWS CLINICAL HISTORY: Fall through glass TECHNIQUE: XR FOREARM_RIGHT 2 VIEWS COMPARISON: None FINDINGS/ IMPRESSION: No acute fracture. Joints at the wrist and elbow incompletely evaluated. Mild soft tissue swelling al jameel the dorsal mid forearm. Tiny radiopacity projected in the soft tissues lateral to the radial neck on AP view, nonspecific but could represent a retained foreign body. Electronically signed by: Roldan Carney DO (04/10/2021 2:52 AM) [facility]
[2021-04-10 03:30] VITALS: BP 125/76
== END 2021-04-10 03:58 | disposition home or self-care (01) ==
LOC: ER 02:01
DX: S51.811A Laceration without foreign body of right forearm, initial encounter (principal); I10 Essential (primary) hypertension; F17.210 Nicotine dependence, cigarettes, uncomplicated; F10.129 Alcohol abuse with intoxication, unspecified; Y90.8 Blood alcohol level of 240 mg/100 ml or more; W18.02XA Striking against glass with subsequent fall, initial encounter; Y93.89 Activity, other specified; Y92.89 Other specified places as the place of occurrence of the external cause; Y99.8 Other external cause status
CPT/HCPCS: 12004; 73090; 90471; 90715; 99283-25

== ENCOUNTER 2021-04-14 06:42 | Emergency (ER) | payer MEDICARE ==
[~2021-04-14] VITALS: Ht 182.9 cm; Wt 74.6 kg
[2021-04-14] MEDS ORDERED: MVI, ADULT NO.4 WITH VIT K 10 ML, FOLIC ACID INJ 1 MG, THIAMINE INJ 100 MG in IV NORMAL... IV ONE (07:00)
--- NOTE | 2021-04-14 07:09 | PHYS DOC ---
Past History Past Medical History: Alcoholism, Hypertension, [place], Seizure, Other Additional Past Medical Histor: ETOH abuse; warnacky's Past Surgical History: Other Smoking: Cigarettes Alcohol Use: Heavy Drug Use: None General Adult EDM: Chief Complaint: MECHANICAL FALL HPI: HPI: 60-year-old male returns the emergency room via EMS with no specific complaints. The patient drinks alcohol frequently. He was seen in this emergency room 4 days ago with right forearm laceration which was repaired with sutures and mary. When asked the patient if anything is going on today, he says "I do not know yet." The patient was reported to call EMS multiple times a day for the last few weeks. 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 He tells me that he is supposed to be taking 3 medications for his heart but he does not remember what they are. He also states he has been out of them for several days. He has no other specific complaints. Review of Systems: Review of Systems: Constitutional: Denies fever or chills Eyes: Denies change in visual acuity HENT: Denies nasal congestion or sore throat Respiratory: Denies cough or shortness of breath Cardiovascular: Denies chest pain or edema GI: Denies abdominal pain, nausea, vomiting, bloody stools or diarrhea : Denies dysuria Musculoskeletal: Denies back pain or joint pain Integument: Repaired laceration and skin tears of the right arm Neurologic: Denies headache, focal weakness or sensory changes Endocrine: Denies polyuria or polydipsia Lymphatic: Denies swollen glands Psychiatric: Denies depression or anxiety Allergies: Allergies: Allergies Coded Allergies Type Severity Reaction Last Updated Verified No Known Drug Allergies 10/08/13 No Physical Exam: PE: Constitutional: Well developed, well nourished, no acute distress, patient appears to be wearing clothes from his visit 4 days ago as they have blood on them. [] HENT: Normocephalic, atraumatic, bilateral external ears normal, oropharynx moist, no oral exudates, nose normal. [] Eyes: PERRLA, EOMI, conjunctiva normal, no discharge. [] Neck: Normal range of motion, no tenderness, supple, no stridor. [] Cardiovascular: Heart rate regular rhythm, no murmur [] Lungs & Thorax: Bilateral breath sounds clear to auscultation [] Abdomen: Bowel sounds normal, soft, no tenderness, no masses, no pulsatile masses. [] Skin: Healing skin tears as well as stapled wound of the right forearm. No signs of acute infection. Dry scalp with evidence of excoriation. [] Back: No tenderness, no CVA tenderness. [] Extremities: No tenderness, no cyanosis, no clubbing, ROM intact, no edema. [] Neurologic: Alert and oriented X 3, normal motor function, poor memory, normal sensory function, no focal deficits noted. [] Psychologic: Affect normal, judgement questionable, mood normal. [] Current Patient Data: Vital Signs: Vital Signs Date Time Temp Pulse Resp B/P (MAP) Pulse Ox O2 Delivery O2 Flow Rate FiO2 04/14/21 06:43 97.9 95 20 121/88 (99) 95 Room Air EKG: EKG: Sinus rhythm, rate 87, leftward axis, no ST elevation or depression. [] Radiology/Procedures: Radiology/Procedures: [] Heart Score: C/O Chest Pain: N/A Risk Factors: Risk Factors: DM, Current or recent (<one month) smoker, HTN, HLP, family history of CAD, obesity. Risk Scores: Score 0 - 3: 2.5% MACE over next 6 weeks - Discharge Home Score 4 - 6: 20.3% MACE over next 6 weeks - Admit for Clinical Observation Score 7 - 10: 72.7% MACE over next 6 weeks - Early Invasive Strategies Course & Med Decision Making: Course & Med Decision Making Pertinent Labs and Imaging studies reviewed. (See chart for details) The patient's labs are significant for a blood alcohol of 341. Given the patient a banana bag. He is cooperative in the ER. After a couple of hours, the behavioral health team has evaluated the patient. It is their belief he would benefit from inpatient admission and likely placement in a care facility because of his dementia and inability to care for himself. Placement is pending at this time. The patient has been accepted for admission at [facility] to their behavioral health unit. The patient has to have his COVID-19 PCR result prior to transfer. This will be pending likely until tomorrow. [] Dragon Disclaimer: Dragon Disclaimer: This electronic medical record was generated, in whole or in part, using a voice recognition dictation system. Departure Departure: Impression: Primary Impression: Robertes encephalopathy Additional Impression: Alcohol intoxication Qualified Codes: F10.920 - Alcohol use, unspecified with intoxication, uncomplicated [facility] Condition: STABLE Referrals: MARTINE ARCHULETA MD (PCP) PRAMOD FERRELL DO Apr 14, 2021 07:09
[2021-04-14 07:48] LABS: BASO # 0.1 x10^3/uL (0.0-0.2); BASO % 1 % (0-3); EOS # 0.2 x10^3/uL (0.0-0.7); EOS % 4 % (0-3); HEMATOCRIT 42.4 % (39.0-53.0); HEMOGLOBIN 14.4 g/dL (13.0-17.5); LYMPH # 1.7 x10^3/uL (1.0-4.8); LYMPH % 31 % (24-48); MEAN CORPUSCULAR HEMOGLOBIN 35 pg (25-35); MEAN CORPUSCULAR HGB CONC 34 g/dL (31-37); MEAN CORPUSCULAR VOLUME 102 fL (79-100); MONO # 0.6 x10^3/uL (0.0-1.1); MONO % 11 % (0-9); NEUT # 2.9 x10^3uL (1.8-7.7); NEUT % 54 % (31-73); PLATELET COUNT 246 x10^3/uL (140-400); RED BLOOD COUNT 4.16 x10^6/uL (4.30-5.70); RED CELL DISTRIBUTION WIDTH 13.7 % (11.5-14.5); WHITE BLOOD COUNT 5.5 x10^3/uL (4.0-11.0)
[2021-04-14 07:55] LABS: BARBITURATES NEG (NEG); BENZODIAZEPINES NEG (NEG); CANNABINOIDS NEG (NEG); COCAINE NEG (NEG); METHADONE NEG (NEG); OPIATES NEG (NEG); PHENCYCLIDINE NEG (NEG)
[2021-04-14 07:55] LABS: CALCIUM 9.1 mg/dL (8.5-10.1); CREATININE 0.9 mg/dL (0.7-1.3); GFR 86.7; POTASSIUM 3.7 mmol/L (3.5-5.1)
[2021-04-14 07:56] LABS: BILIRUBIN,URINE NEG (NEG); CLARITY,URINE CLEAR; COLOR,URINE YELLOW; GLUCOSE,URINE NEG (NEG)
[2021-04-14 07:57] LABS: BACTERIA,URINE 0 /HPF (0-FEW); NITRITE,URINE NEG (NEG); RBC,URINE 0 /HPF (0-2); SQUAMOUS EPITHELIAL CELL,UR OCC /LPF; UROBILINOGEN,URINE 0.2 mg/dL (0.2 mg/dL); WBC,URINE 0 /HPF (0-4)
[2021-04-14 07:58] LABS: AMPHETAMINE/METHAMPHETAMINE NEG (NEG)
[2021-04-14 08:01] LABS: ALBUMIN 3.8 g/dL (3.4-5.0); ALBUMIN/GLOBULIN RATIO 0.9 (1.0-1.7); TOTAL BILIRUBIN 0.5 mg/dL (0.2-1.0)
--- NOTE | 2021-04-14 13:16 | EKG ---
[address] [address] Test Date: 2021-04-14 Test Time: 07:14:48 Pat Name: GAVINO CHRISTENSEN Department: Room: Gender: M Chronic Disease Epidemiologist: LISANDRO : 1960 Requested By: PRAMOD FERRELL Order Number: [id number] Reading MD: Cj Mccoy Measurements Intervals [place] Rate: 87 P: 24 [place]: 168 QRS: -7 QRSD: 90 T: 34 QT: 378 QTc: 455 Interpretive Statements SINUS RHYTHM LEFTWARD AXIS Electronically Signed On 04-14-2021 15:54:44 CDT by Cj Mccoy
[2021-04-14 16:48] VITALS: BP 102/59
== END 2021-04-14 17:13 ==
LOC: ER 06:42
DX: S51.811D Laceration without foreign body of right forearm, subsequent encounter (principal); E51.2 Wernicke's encephalopathy; F10.229 Alcohol dependence with intoxication, unspecified; I10 Essential (primary) hypertension; I25.2 Old myocardial infarction; F17.210 Nicotine dependence, cigarettes, uncomplicated; Z20.822 Contact with and (suspected) exposure to COVID-19; W18.39XD Other fall on same level, subsequent encounter; Y90.8 Blood alcohol level of 240 mg/100 ml or more
CPT/HCPCS: 80053; 80307; 81001; 85025; 87426; 93005; 96365; 99285; G0480; J7030; U0003

== ENCOUNTER 2021-04-24 16:30 | Emergency (ER) | payer MEDICARE ==
[~2021-04-24] VITALS: Ht 182.9 cm; Wt 74.6 kg
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
== END 2021-04-24 16:48 | disposition left against medical advice (07) ==
LOC: ER 16:30
DX: R46.89 Other symptoms and signs involving appearance and behavior (principal); F10.20 Alcohol dependence, uncomplicated; I10 Essential (primary) hypertension; I25.2 Old myocardial infarction; F17.210 Nicotine dependence, cigarettes, uncomplicated; Y90.9 Presence of alcohol in blood, level not specified
CPT/HCPCS: 99283

== ENCOUNTER 2021-04-28 01:52 | Emergency (ER) | payer MEDICARE ==
[~2021-04-28] VITALS: Ht 182.9 cm; Wt 74.6 kg
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
[2021-04-28 05:00] VITALS: BP 127/63
== END 2021-04-28 05:35 | disposition home or self-care (01) ==
LOC: ER 01:52
DX: F10.20 Alcohol dependence, uncomplicated (principal); R46.89 Other symptoms and signs involving appearance and behavior; I10 Essential (primary) hypertension; I25.2 Old myocardial infarction; F17.210 Nicotine dependence, cigarettes, uncomplicated; Y90.9 Presence of alcohol in blood, level not specified
CPT/HCPCS: 99283

== ENCOUNTER 2021-05-31 00:23 | Emergency (ER) | payer MEDICARE ==
[~2021-05-31] VITALS: Ht 182.9 cm; Wt 84.9 kg
[2021-05-31] MEDS ORDERED: FOLIC ACID 1 MG TABLET PO ONE (00:30)
[2021-05-31] MEDS ORDERED: IV RINGERS SOLUTION,LACTATED 1,000 ML IV ONE (00:30)
[2021-05-31] MEDS ORDERED: CYANOCOBALAMIN (VITAMIN B-12) 1,000 MCG/ML VIAL. IM ONE (00:30)
[2021-05-31] MEDS ORDERED: THIAMINE 100 MG TABLET. PO ONE (00:30)
--- NOTE | 2021-05-31 00:34 | PHYS DOC ---
Past History Past Medical History: Alcoholism, Hypertension, [place], Seizure, Other Additional Past Medical Histor: ETOH abuse Past Surgical History: Other Smoking: Cigarettes Alcohol Use: Heavy Drug Use: None Adult General Chief Complaint Chief Complaint: ALCOHOL INTOXICATION HPI HPI Patient is a 60-year-old male with a past medical history significant for alcoholism who had a history also of anxiety depression who calls EMS multiple times a day on occasion when he becomes intoxicated and asked to come to the emergency department. Patient presents today after drinking significant amounts of alcohol today, self endorsed because he was hungry and wants something to eat and wants a friend to talk to. Denies any other drug use. Denies any suicidal ideations, homicidal ideations or hallucinations. Patient does have a history of alcohol withdrawal but denies withdrawal seizure. Denies recent travels, traumas, illnesses, fevers, chest pain, shortness of breath, abdominal pain, nausea, vomiting, dysuria, hematuria, blood in the stool. Denies any falls. Review of Systems Review of Systems Review of systems otherwise unremarkable except noted in HPI Allergies Allergies Allergies Coded Allergies Type Severity Reaction Last Updated Verified No Known Drug Allergies 10/08/13 No Physical Exam Physical Exam Constitutional: Well developed, well nourished, no acute distress, non-toxic appearance. [] HENT: Normocephalic, atraumatic, bilateral external ears normal, oropharynx moist, no oral exudates, nose normal. [] Eyes: PERRLA, EOMI, conjunctiva normal, no discharge. [] Neck: Normal range of motion, no tenderness, supple, no stridor. [] Cardiovascular:Heart rate regular rhythm, no murmur [] Lungs & Thorax: Bilateral breath sounds clear to auscultation [] Abdomen: Bowel sounds normal, soft, no tenderness, no masses, no pulsatile masses. [] Skin: Warm, dry, no erythema, no rash. [] Back: No tenderness, no CVA tenderness. [] Extremities: No tenderness, no cyanosis, no clubbing, ROM intact, no edema. [] Neurologic: Alert and oriented X 3, normal motor function, normal sensory function, no focal deficits noted. [] Psychologic: Affect normal, judgement normal, mood normal. [] EKG EKG [] Radiology/Procedures Radiology/Procedures [] Heart Score C/O Chest Pain: No Risk Factors: Risk Factors: DM, Current or recent (<one month) smoker, HTN, HLP, family history of CAD, obesity. Risk Scores: Risk Factors: DM, Current or recent (<one month) smoker, HTN, HLP, family history of CAD, obesity. Course & Med Decision Making Course & Med Decision Making Patient is a 60-year-old male who presents to the emergency department intoxicated on alcohol stating he wanted something to eat and a friend to talk to Vital signs initially notable for hypertension and tachycardia which resolved in the ED after IV fluid resuscitation a sandwich, some chips and a soda. On reassessment patient stated he was feeling better and was ready to be discharged home. Patient able to sit, stand and walk without issue is alert and oriented in no acute distress. Discussed findings with patient and discussed alcohol cessation and need to follow-up with primary care physician in the morning to start moving in that direction. Advised on diet, exercise and multivitamin. Gave strict return precautions to the ED and advised to call primary care physician in the morning to set up follow-up as quickly as possible. Patient grateful, verbalized understanding and agree with plan of discharge. [] Dragon Disclaimer Dragon Disclaimer This electronic medical record was generated, in whole or in part, using a voice recognition dictation system. Departure Departure: Impression: Primary Impression: Alcohol intoxication Disposition: HOME / SELF CARE / HOMELESS Condition: GOOD Referrals: MARTINE ARCHULETA MD (PCP) Patient Instructions: Alcohol Intoxication Additional Instructions: Thank you for coming into the emergency department tonight and allowing us to take care of you. Please read the attached information carefully to go back over some of the things we discussed. It is very important that she quit drinking alcohol but do this very slowly over a couple weeks as we discussed him do this in conjunction with your primary care physician and/or a professional counselor. Please begin also drinking plenty of fluids daily and eating at least 3 nutritious meals a day including a One-A-Day multivitamin. It is very important that you follow-up in the morning with your primary care physician and start following him frequently to help with alcohol cessation and appropriate nutrition as well as any other needed evaluation and treatments. Please come into the emergency department immediately with new or concerning symptoms as discussed. KENYD GARNER MD May 31, 2021 00:34
[2021-05-31 01:41] VITALS: BP 138/85
== END 2021-05-31 01:56 | disposition home or self-care (01) ==
LOC: ER 00:23
DX: F10.229 Alcohol dependence with intoxication, unspecified (principal); I10 Essential (primary) hypertension; I25.2 Old myocardial infarction; F17.210 Nicotine dependence, cigarettes, uncomplicated; Y90.9 Presence of alcohol in blood, level not specified
CPT/HCPCS: 96360; 99283; J7120

== ENCOUNTER 2021-07-04 14:42 | Emergency (ER) | payer MEDICARE ==
[~2021-07-04] VITALS: Ht 182.9 cm; Wt 84.9 kg
[2021-07-04 15:00] VITALS: BP 145/83
--- NOTE | 2021-07-04 15:12 | PHYS DOC ---
Past History Past Medical History: Alcoholism, Hypertension, [place], Seizure, Other Additional Past Medical Histor: ETOH abuse (GO NIX APRN) Past Surgical History: Other Additional Past Surgical Histo: ortho surgeries (GO NIX APRN) Smoking: Cigarettes Alcohol Use: None Drug Use: None (GO NIX APRN) General Adult EDM: Chief Complaint: ALCOHOL INTOXICATION HPI: HPI: Patient is a 61-year-old male who presents to the emergency department via EMS. Per EMS patient drink a liter of 7 and 7 that was witnessed by them and call them for alcohol intoxication and slurred speech. Patient reports that they have ran this patient multiple times for similar complaints. Blood sugar was 140 and vital signs were stable for EMS. Patient is uncooperative with obtaining a history and becomes aggressive and cursing at staff. When asked what patient wants to be seen in the emergency department today for he stated that he got scared at home. He reports that he made a mistake by drinking a lot of alcohol. He states that he wants to be evaluated for "my heart". Patient denies any chest pain, injuries or pain, or shortness of breath currently. Patient is ambulatory. Patient states that he wants to go home. Patient is alert and oriented x4. (GO NIX APRN) Review of Systems: Review of Systems: Constitutional: negative unless reported in HPI Eyes: negative unless reported in HPI HENT: negative unless reported in HPI Respiratory: negative unless reported in HPI Cardiovascular: negative unless reported in HPI GI: negative unless reported in HPI : negative unless reported in HPI Musculoskeletal: negative unless reported in HPI Integument: negative unless reported in HPI Neurologic: negative unless reported in HPI Endocrine: negative unless reported in HPI Lymphatic: negative unless reported in HPI Psychiatric: negative unless reported in HPI (GO NIX APRN) Allergies: Allergies: Allergies Coded Allergies Type Severity Reaction Last Updated Verified No Known Drug Allergies 10/08/13 No (GO NIX APRN) Physical Exam: PE: Constitutional: Well developed, well nourished, no acute distress, non-toxic appearance. [] HENT: Normocephalic, atraumatic, multiple old scratches noted to patient's scalp and face without any redness/warmth/drainage or swelling, bilateral external ears normal, oropharynx moist, no oral exudates, nose normal. [] Eyes: PERRL, EOMI, conjunctiva normal, no discharge. [] Neck: Normal range of motion, no stridor Cardiovascular:Heart rate regular rhythm, no murmur [] Lungs & Thorax: Bilateral breath sounds clear to auscultation [] Abdomen: Bowel sounds normal, soft, no tenderness, no masses, no pulsatile masses. [] Skin: Warm, dry, no erythema, no rash. [] Back: Normal range of motion Extremities: No tenderness, no cyanosis, no clubbing, ROM intact, no edema. [] Neurologic: Alert and oriented X 3, normal motor function, normal sensory function, no focal deficits noted. [] Psychologic: Affect normal, judgement normal, mood normal. [] (GO NIX APRN) EKG: EKG: [] (GO NIX APRN) Radiology/Procedures: Radiology/Procedures: [] (GO NIX APRN) Heart Score: C/O Chest Pain: No Risk Factors: Risk Factors: DM, Current or recent (<one month) smoker, HTN, HLP, family history of CAD, obesity. Risk Scores: Score 0 - 3: 2.5% MACE over next 6 weeks - Discharge Home Score 4 - 6: 20.3% MACE over next 6 weeks - Admit for Clinical Observation Score 7 - 10: 72.7% MACE over next 6 weeks - Early Invasive Strategies (GO NIX APRN) Course & Med Decision Making: Course & Med Decision Making Pertinent Labs and Imaging studies reviewed. (See chart for details) [] Patient presents to the emergency department today for alcohol intoxication. Patient was witnessed to drink a liter of 7 and 7 by EMS upon their arrival. EMS reports that they got called for alcohol intoxication and slurred speech. Patient has normal speech. Patient is well-known to this emergency department. When I asked him what he wanted to be evaluated for he is uncooperative in answering my questions. He is also cursing at me. Patient states that he wants to be evaluated for "my heart". He denies any chest pain or shortness of breath. He reports to the nurse that he got scared at home because of the alco hol that he had drank. Patient will not answer me regarding how much alcohol he had to drink. He does not have any current complaints. He states that he wants to go home. Patient is ambulatory. He is alert and oriented x4. Patient provided with fluids and food in the ER. I discussed with patient all findings as well as the need to follow-up with PCP for further evaluation and treatment or return to the ER if any new or worsening symptoms. Strict return precautions were also discussed at length. Patient voiced understanding and agreement with the plan. Patient is hemodynamically stable at the time of disposition. (GO NIX APRN) Course & Med Decision Making Did not see or evaluate patient. Did not discuss patient with OPTICS TEST TECHNICIAN. Agree with OPTICS TEST TECHNICIAN's work-up and disposition per note. (KENDY GARNER MD) Dragon Disclaimer: Dragon Disclaimer: This electronic medical record was generated, in whole or in part, using a voice recognition dictation system. (GO NIX APRN) Departure Departure: Impression: Primary Impression: EtOH dependence Qualified Codes: F10.29 - Alcohol dependence with unspecified alcohol- induced disorder Disposition: HOME / SELF CARE / HOMELESS Condition: STABLE Referrals: MARTINE ARCHULETA MD (PCP) Patient Instructions: Alcohol Intoxication Additional Instructions: You are seen in the emergency department today for alcohol intoxication. Please discontinue alcohol use. If you ever seek detox from alcohol please return to the emergency department. Return to the ER also if you ever experience any falls, chest pain, shortness of breath, unilateral weakness, speech changes, confusion or any new or worsening concerns. Please follow-up with your primary care provider on Monday. GO NIX APRN Jul 04, 2021 15:12 KENDY GARNER MD Jul 04, 2021 15:44
== END 2021-07-04 16:36 | disposition home or self-care (01) ==
LOC: ER 14:42
DX: F10.29 Alcohol dependence with unspecified alcohol-induced disorder (principal); R47.81 Slurred speech; I10 Essential (primary) hypertension; I25.2 Old myocardial infarction; F17.210 Nicotine dependence, cigarettes, uncomplicated; Y90.9 Presence of alcohol in blood, level not specified
CPT/HCPCS: 99284

== ENCOUNTER 2021-07-09 10:11 | Emergency (ER) | payer MEDICARE ==
[~2021-07-09] VITALS: Ht 177.8 cm; Wt 63.2 kg
[2021-07-09 10:17] VITALS: BP 159/108
--- NOTE | 2021-07-09 10:32 | PHYS DOC ---
Past History Past Medical History: Alcoholism, Hypertension, OR, Seizure, Other Additional Past Medical Histor: ETOH abuse (MARLENA SEBASTIAN APRN) Past Surgical History: No Surgical History Additional Past Surgical Histo: ortho surgeries (MARLNEA SEBASTIAN APRN) Smoking: Cigarettes Alcohol Use: Heavy Drug Use: None (MARLENA SEBASTIAN APRN) General Adult EDM: Chief Complaint: MECHANICAL FALL HPI: HPI: Patient is a 61-year-old male who presents after a fall at home. Patient states he is a daily drinker, drinks 1/5 of whiskey a day. Unknown loss of consciousness. Patient states that he believes he called EMS after his fall. Patient is reporting pain to mid and lower back. Denies head or neck pain. Patient does state that he has some pain in his left upper chest. Denies shortness of breath. Patient states he has a history of hypertension and past OR. Patient is a poor historian and unable to give medications at this time. Unknown if patient is on blood thinners. Denies tobacco or drug use. Patient reports daily alcohol use. (MARLENA SEBASTIAN APRN) Review of Systems: Review of Systems: ROS At least 10 ROS systems have been reviewed and are negative except as documented in the HPI. General: Negative except as outlined in HPI above. Skin: Negative except as outlined in HPI above. HEENT: Negative except as outlined in HPI above. Neck: Negative except as outlined in HPI above. Respiratory: Negative except as outlined in HPI above.. Cardiovascular: Negative except as outlined in HPI above. Abdomen: Negative except as outlined in HPI above. : Negative except as outlined in HPI above. Back/MSK: Negative except as outlined in HPI above. Neuro: Negative except as outlined in HPI above. Psych: Negative except as outlined in HPI above. (MARLENA SEBASTIAN DRILL BIT SHARPENER) Allergies: Allergies: Allergies Coded Allergies Type Severity Reaction Last Updated Verified No Known Drug Allergies 10/08/13 No (MARLENA SEBASTIAN APRN) Physical Exam: PE: Constitutional: Well developed, well nourished, no acute distress, non-toxic appearance. [] HENT: Normocephalic, atraumatic, bilateral external ears normal, oropharynx moist, no oral exudates, nose normal. [] Eyes: PERRLA, EOMI, conjunctiva normal, no discharge. [] Neck: Normal range of motion, no tenderness, supple, no stridor. [] Cardiovascular:Heart rate regular rhythm, no murmur [] Lungs & Thorax: Bilateral breath sounds clear to auscultation [] Abdomen: Bowel sounds normal, soft, no tenderness, no masses, no pulsatile masses. [] Skin: Multiple, Red, sores to top of head Back: Lumbar and thoracic tenderness, no CVA tenderness. [] Extremities: No tenderness, no cyanosis, no clubbing, ROM intact, no edema. [] Neurologic: Alert and oriented X 3, normal motor function, normal sensory function, no focal deficits noted. [] Psychologic: Affect normal, judgement normal, mood normal. [] (MARLENA SEBASTIAN APRN) Current Patient Data: Vital Signs: Vital Signs Date Time Temp Pulse Resp B/P (MAP) Pulse Ox O2 Delivery O2 Flow Rate FiO2 07/09/21 10:17 98.2 103 18 159/108 (125) 96 Room Air (MARLENA SEBASTIAN APRN) EKG: EKG: Sinus rhythm. Heart rate [address] elevation or depression. Read by Dr. Adame at 1037. [] (MARLENA SEBASTIAN APRN) Radiology/Procedures: Radiology/Procedures: []Exam Date: 07/09/2021 10:[address] HEAD AND C-SPINE WO Indication: Reason: FALL / Spl. Instructions: / History: . One or more of the following dose reduction techniques were utilized: *Automated exposure control (AEC) *Adjustment of mA and/or kV according to patient size *Use of iterative reconstruction technique *CT scan done according to ALARA, or ALARA/IMAGE GENTLY EXAMINATION: CT OF THE HEAD WITHOUT CONTRAST INDICATION: Trauma, head injury, headache; TECHNIQUE: Noncontrast helical axial CT images of the head were obtained. COMPARISON: April 02, 2021 FINDINGS: The ventricles and sulci are prominent consistent with cerebral volume loss. Patchy ill-defined low attenuation areas in the subcortical and periventricular white matter bilaterally are consistent with microvascular disease. There is no evidence of acute intracranial hemorrhage, extra-axial collection, mass effect, midline shift, or acute territorial infarct. No lesion of the skull base or the calvarium is seen. The visualized mastoid air cells, and orbits are no rmal in appearance. There is mucosal thickening in the paranasal sinuses. IMPRESSION: No evidence for acute intracranial abnormality. Volume loss and microvascular disease. EXAMINATION: CT OF THE CERVICAL SPINE WITHOUT CONTRAST Clinical Indication: Cervical spine pain after trauma Technique: Thin cut helical axial CT images through the cervical spine were obtained without contrast on a multi-detector CT scanner. Source data was then reconstructed into sagittal and coronal planes. Findings: Alignment is maintained without spondylolisthesis. Vertebral body heights are maintained without acute fracture. Mild multilevel degenerative changes are noted. No significant prevertebral soft tissue swelling is demonstrated. No severe osseous central canal stenosis is seen. Impression: No evidence of acute cervical spine fracture or subluxation. Electronically signed by: Lewis Cheema MD (07/09/2021 11:05 AM) [id number] DICTATED AND SIGNED BY: LEWIS CHEEMA MD DATE: 07/09/21 1058 CC: MARLENA SEBASTIAN DRILL BIT SHARPENER; MARTINE ARCHULETA MD ~MTH0 0 XR CHEST 1V, XR LUMBAR SPINE 4+V, XR THORACIC SPINE 3VIEWS Clinical Indication: Reason: FALL Comparison: AP chest April 03, 2021. Findings: The cardiomediastinal silhouette is normal. There is mild pulmonary vascular congestion. Lungs are clear. There is no pneumothorax. No pleural effusion is appreciated. The upper thoracic spine is not well-seen on the swimmer's view. There are age-indeterminate mild compression deformities at the superior endplates of what appears to be the T6, T7, T8, and T12 vertebral bodies. No acute fracture line is definitely seen. The thoracic spine alignment is maintained. The sacroiliac joints are symmetric. There is old compression fracture of the superior endplate of L2. There is mild grade 1 retrolisthesis of L4 on L5. The alignment is otherwise maintained in the lumbar spine. There is a 1.3 cm sclerotic density in the right L5 vertebral body, indeterminate. There is a left hip screw. A pars defect is not identified. No significant disc space narrowing. IMPRESSION: 1. Mild pulmonary vascular congestion. 2. There is old compression fracture of the L2 vertebral body. 3. There are age indeterminant mild compression deformities in the thoracic spine. Correlate to any point tenderness. Acuity could be further assessed with MRI. (MARLENA SEBASTIAN APRN) Heart Score: C/O Chest Pain: No Risk Factors: Risk Factors: DM, Current or recent (<one month) smoker, HTN, HLP, family history of CAD, obesity. Risk Scores: Score 0 - 3: 2.5% MACE over next 6 weeks - Discharge Home Score 4 - 6: 20.3% MACE over next 6 weeks - Admit for Clinical Observation Score 7 - 10: 72.7% MACE over next 6 weeks - Early Invasive Strategies (MARLENA SEBASTIAN APRN) Course & Med Decision Making: Course & Med Decision Making Pertinent Labs and Imaging studies reviewed. (See chart for details) [] 61 male presents after a fall at home. Patient states he has been drinking alcohol this morning. Unknown loss of consciousness. Patient reporting thoracic and lumbar back pain. Denies neck pain and has full range of motion. Patient reporting left-sided chest pain. Patient does have a recent history of OR. Unknown medications. Work-up in ER consists of labs, urinalysis, CT head and neck, EKG. CT head and cervical spine unremarkable. Lumbar and thoracic x-ray are unremarkable. All labs including troponin are unremarkable. Urine is negative for infection. Urine drug screen is positive for alcohol. Patient is a alert and oriented and requesting to be discharged from the ER. Patient was road tested and was able to ambulate on his own. (MARLENA SEBASTIAN APRN) Dragon Disclaimer: Dragon Disclaimer: This electronic medical record was generated, in whole or in part, using a voice recognition dictation system. (MARLENA SEBASTIAN APRN) Departure Departure: Impression: Primary Impression: Alcohol abuse Additional Impression: Fall Qualified Codes: W19.XXXA - Unspecified fall, initial encounter Disposition: HOME / SELF CARE / HOMELESS Condition: STABLE Referrals: MARTINE ARCHULETA MD (PCP) Patient Instructions: Alcohol Intoxication, [id number], Fall Prevention and Home Safety, [id number] Additional Instructions: You were seen in the emergency room for a fall. All of your labs were unremarkable. We obtained images of your head, neck, back and chest. All of y our imaging was unremarkable as well. Please return to the emergency room if you have worsening symptoms or concerns. Otherwise follow-up with your PCP. EMERGENCY DEPARTMENT GENERAL DISCHARGE INSTRUCTIONS Thank you for coming to [facility] (ED) today and trusting us with you care. We trust that you had a positivie experience in our Emergency Department. If you wish to speak to the department management, you may call the director at [phone]. YOUR FOLLOW UP INSTRUCTIONS ARE FOLLOWS: 1. Do you have a private Doctor? If you do not have a private doctor, please ask for a resource list of physicians or clinics that may be able to assist you with follow up care. 2. The Emergency Physician has interpreted your x-rays. The X-Ray specialist will also review them. If there is a change in the findings, you will be notified in 48 hours when at all possible. 3. A lab test or culture has been done, your results will be reviewed and you will be notified if you need a change in treatment. ADDITIONAL INSTRUCTIONS AND INFORMATION: 1. Your care today has been supervised by a physician who is specially trained in emergency care. Many problems require more than one evaluation for a complete diagnosis and treatment. We recommend that you schedule your follow up appointment as recommended to ensure complete treatment of you illness or injury. If you are unable to obtain follow up care and continue to have a problem, or if your condition worsens, we recommend that you return to the ED. 2. We are not able to safely determine your condition over the phone nor are we able to give sound medical advice over the phone. For these safety reasons, if you call for medical advice we will ask you to come to the ED for further evaluation. 3. If you have any questions regarding these discharge instructions please call the ED at [phone]. SAFETY INFORMATION: In the interest of safety, wellness, and injury prevention; we encourage you to wear your sealbelt, if you smoke; quite smoking, and we encourage family to use a protective helmet for bicycling and other sporting events that present an increased risk for head injury. IF YOUR SYMPTOMS WORSEN OR NEW SYMPTOMS DEVELOP, OR YOU HAVE CONCERNS ABOUT YOUR CONDITION; OR IF YOUR CONDITION WORSENS WHILE YOU ARE WAITING FOR YOUR FOLLOW UP APPOINTMENT; EITHER CONTACT YOUR PRIMARY CARE DOCTOR, THE PHYSICIAN WHOSE NAME AND NUMBER YOU WERE GIVEN, OR RETURN TO THE ED IMMEDIATELY. Attending Signature Attending Signature I have reviewed the PA/RETAIL [employer]S PRO's note and plan of care. I was available for consultation as needed during the patient's visit in the emergency department. I agree with the clinical impression, plan, and disposition. (RAFIA ADAME DO) MARLENA SEBASTIAN APRN Jul 09, 2021 10:32 RAFIA ADAME DO Jul 10, 2021 02:51
--- NOTE | 2021-07-09 11:07 | RAD ---
Exam Date: 07/09/2021 10:[address] HEAD AND C-SPINE WO Indication: Reason: FALL / Spl. Instructions: / History: . One or more of the following dose reduction techniques were utilized: *Automated exposure control (AEC) *Adjustment of mA and/or kV according to patient size *Use of iterative reconstruction technique *CT scan done according to ALARA, or ALARA/IMAGE GENTLY EXAMINATION: CT OF THE HEAD WITHOUT CONTRAST INDICATION: Trauma, head injury, headache; TECHNIQUE: Noncontrast helical axial CT images of the head were obtained. COMPARISON: April 02, 2021 FINDINGS: The ventricles and sulci are prominent consistent with cerebral volume loss. Patchy ill-defined low attenuation areas in the subcortical and periventricular white matter bilaterally are consistent with microvascular disease. There is no evidence of acute intracranial hemorrhage, extra-axial collecti on, mass effect, midline shift, or acute territorial infarct. No lesion of the skull base or the calv arium is seen. The visualized mastoid air cells, and orbits are normal in appearance. There is mucos al thickening in the paranasal sinuses. IMPRESSION: No evidence for acute intracranial abnormality. Volume loss and microvascular disease. EXAMINATION: CT OF THE CERVICAL SPINE WITHOUT CONTRAST Clinical Indication: Cervical spine pain after trauma Technique: Thin cut helical axial CT images through the cervical spine were obtained without contrast on a multi-detector CT scanner. Source data was then reconstructed into sagittal and coronal planes. Findings: Alignment is maintained without spondylolisthesis. Vertebral body heights are maintained without acute fracture. Mild multilevel degenerative changes ar e noted. No significant prevertebral soft tissue swelling is demonstrated. No severe osseous central canal stenosis is seen. Impression: No evidence of acute cervical spine fracture or subluxation. Electronically signed by: Harvinder Cheema MD (07/09/2021 11:05 AM) [id number]
--- NOTE | 2021-07-09 11:08 | EKG ---
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
[2021-07-09 11:26] LABS: BASO # 0.1 x10^3/uL (0.0-0.2); BASO % 1 % (0-3); EOS # 0.2 x10^3/uL (0.0-0.7); EOS % 4 % (0-3); HEMATOCRIT 46.4 % (39.0-53.0); HEMOGLOBIN 15.7 g/dL (13.0-17.5); LYMPH # 2.3 x10^3/uL (1.0-4.8); LYMPH % 39 % (24-48); MEAN CORPUSCULAR HEMOGLOBIN 34 pg (25-35); MEAN CORPUSCULAR HGB CONC 34 g/dL (31-37); MEAN CORPUSCULAR VOLUME 100 fL (79-100); MONO # 0.3 x10^3/uL (0.0-1.1); MONO % 5 % (0-9); NEUT % 51 % (31-73); PLATELET COUNT 233 x10^3/uL (140-400); RED BLOOD COUNT 4.65 x10^6/uL (4.30-5.70); RED CELL DISTRIBUTION WIDTH 14.1 % (11.5-14.5); WHITE BLOOD COUNT 5.9 x10^3/uL (4.0-11.0)
[2021-07-09 11:27] LABS: BILIRUBIN,URINE NEG (NEG); CLARITY,URINE CLEAR; COLOR,URINE YELLOW; GLUCOSE,URINE NEG (NEG); NITRITE,URINE NEG (NEG); UROBILINOGEN,URINE 0.2 mg/dL (0.2 mg/dL)
[2021-07-09 11:29] LABS: BARBITURATES NEG (NEG); BENZODIAZEPINES NEG (NEG); CANNABINOIDS NEG (NEG); COCAINE NEG (NEG); METHADONE NEG (NEG); OPIATES NEG (NEG); PHENCYCLIDINE NEG (NEG)
[2021-07-09 11:30] LABS: BACTERIA,URINE 0 /HPF (0-FEW); RBC,URINE 0 /HPF (0-2); SQUAMOUS EPITHELIAL CELL,UR OCC /LPF; WBC,URINE 0 /HPF (0-4)
[2021-07-09 11:31] LABS: AMPHETAMINE/METHAMPHETAMINE NEG (NEG)
[2021-07-09 11:34] LABS: CALCIUM 8.5 mg/dL (8.5-10.1); CREATININE 0.8 mg/dL (0.7-1.3); GFR 98.9; POTASSIUM 4.1 mmol/L (3.5-5.1)
[2021-07-09 11:37] LABS: ALBUMIN 4.1 g/dL (3.4-5.0); ALBUMIN/GLOBULIN RATIO 1.1 (1.0-1.7); MAGNESIUM 2.5 mg/dL (1.8-2.4); TOTAL BILIRUBIN 0.3 mg/dL (0.2-1.0)
--- NOTE | 2021-07-09 11:47 | RAD ---
XR CHEST 1V, XR LUMBAR SPINE 4+V, XR THORACIC SPINE 3VIEWS Clinical Indication: Reason: FALL Comparison: AP chest April 03, 2021. Findings: The cardiomediastinal silhouette is normal. There is mild pulmonary vascular congestion. Lungs are cl ear. There is no pneumothorax. No pleural effusion is appreciated. The upper thoracic spine is not well-seen on the swimmer's view. There are age-indeterminate mild com pression deformities at the superior endplates of what appears to be the T6, T7, T8, and T12 vertebra l bodies. No acute fracture line is definitely seen. The thoracic spine alignment is maintained. The sacroiliac joints are symmetric. There is old compression fracture of the superior endplate of L2 . There is mild grade 1 retrolisthesis of L4 on L5. The alignment is otherwise maintained in the lumb ar spine. There is a 1.3 cm sclerotic density in the right L5 vertebral body, indeterminate. There is a left hip screw. A pars defect is not identified. No significant disc space narrowing. IMPRESSION: 1. Mild pulmonary vascular congestion. 2. There is old compression fracture of the L2 vertebral body. 3. There are age indeterminant mild compression deformities in the thoracic spine. Correlate to any point tenderness. Acuity could be further assessed with MRI. Electronically signed by: Jerel Ricci MD (07/09/2021 11:44 AM) [id number]
[2021-07-09] MEDS ORDERED: IV NORMAL SALINE 1,000ML 1,000 ML IV ONE (12:00)
== END 2021-07-09 12:29 | disposition home or self-care (01) ==
LOC: ER 10:11
DX: F10.20 Alcohol dependence, uncomplicated (principal); M54.59 Other low back pain; M54.2 Cervicalgia; R07.89 Other chest pain; I10 Essential (primary) hypertension; I25.2 Old myocardial infarction; F17.210 Nicotine dependence, cigarettes, uncomplicated; Y90.8 Blood alcohol level of 240 mg/100 ml or more; W18.39XA Other fall on same level, initial encounter; Y93.89 Activity, other specified; Y92.098 Other place in other non-institutional residence as the place of occurrence of the external cause; Y99.8 Other external cause status
CPT/HCPCS: 36415; 70450; 71045; 72072; 72110; 72125; 80053; 80307; 81001; 83735; 84484; 85025; 93005; 99285; G0480

== ENCOUNTER 2021-07-09 22:33 | Emergency (ER) | payer MEDICARE ==
[~2021-07-09] VITALS: Ht 177.8 cm; Wt 63.2 kg
[2021-07-09] MEDS ORDERED: MVI, ADULT NO.4 WITH VIT K 10 ML, FOLIC ACID INJ 1 MG, THIAMINE INJ 100 MG in IV NORMAL... IV ONE (23:00)
--- NOTE | 2021-07-09 23:23 | RAD ---
EXAMINATION: CT head and cervical spine without IV contrast. INDICATION:61 years, Male, fall, ethanol abuse. COMPARISON: Same day CT brain and cervical spine. TECHNIQUE: Spiral acquisition of contiguous images from the skull base to the vertex were obtained. C T of the cervical spine was obtained using contiguous spiral imaging from the skull base to the upper thoracic level. Sagittal and coronal 2D reformatted series were provided by the technologist. Soft t issue and bone window algorithms were reviewed. Exposure: One or more of the following individualized dose reduction techniques were utilized for thi s examination: 1. Automated exposure control 2. Adjustment of the mA and/or kV according to patient size 3. Use of iterative reconstruction technique. FINDINGS: CT HEAD: Moderate brain parenchymal volume loss. Similar supratentorial periventricular white matter hypodensi ties, indeterminate but most likely representing chronic microangiopathic disease. Neither mass, midl ine shift, intracranial hemorrhage, acute/subacute ischemic changes, nor extraaxial fluid collections are seen. Similar mucosal thickening in bilateral maxillary sinuses. Remaining visualized paranasal sinuses, mastoid air cells, and middle ears are clear. The orbital contents appear within normal lucero its. CT CERVICAL SPINE: Anatomic alignment of the cervical spine is maintained. Neither fracture, subluxation, nor traumatic spondylolisthesis is seen. The vertebral body heights are preserved. Multilevel the changes in the ce rvical spine, worst at L4-5 and C5-6. There is no evidence of a large intraspinal hematoma. The preve rtebral and paravertebral soft tissues are within normal limits. IMPRESSION: 1. No acute intracranial abnormality. 2. No acute fracture of the cervical spine. Electronically signed by: Georgia Arcos MD (07/09/2021 11:20 PM) [facility]
[2021-07-09 23:38] LABS: BASO # 0.1 x10^3/uL (0.0-0.2); BASO % 1 % (0-3); EOS # 0.2 x10^3/uL (0.0-0.7); EOS % 4 % (0-3); HEMATOCRIT 43.6 % (39.0-53.0); HEMOGLOBIN 14.8 g/dL (13.0-17.5); LYMPH % 38 % (24-48); MEAN CORPUSCULAR HEMOGLOBIN 34 pg (25-35); MEAN CORPUSCULAR HGB CONC 34 g/dL (31-37); MEAN CORPUSCULAR VOLUME 99 fL (79-100); MONO # 0.4 x10^3/uL (0.0-1.1); MONO % 7 % (0-9); NEUT # 2.6 x10^3uL (1.8-7.7); NEUT % 50 % (31-73); PLATELET COUNT 218 x10^3/uL (140-400); RED BLOOD COUNT 4.41 x10^6/uL (4.30-5.70); RED CELL DISTRIBUTION WIDTH 13.8 % (11.5-14.5); WHITE BLOOD COUNT 5.3 x10^3/uL (4.0-11.0)
--- NOTE | 2021-07-09 23:46 | PHYS DOC ---
Past History Past Medical History: Alcoholism, Hypertension, NV, Seizure, Other Additional Past Medical Histor: ETOH abuse Past Medical History Limited secondary to alcohol intoxication Past Surgical History: Other Additional Past Surgical Histo: ortho surgeries Past Surgical History Limited secondary to alcohol intoxication Smoking: Cigarettes Alcohol Use: Heavy Drug Use: None Social History Limited secondary to alcohol intoxication General Adult EDM: Chief Complaint: ALCOHOL INTOXICATION HPI: HPI: Patient is a [age] year old [sex] who presents with [] History of present illness limited secondary to alcohol intoxication. Review of Systems: Review of Systems: Constitutional: Denies fever or chills Eyes: Denies redness or eye pain HENT: Denies nasal congestion or sore throat Respiratory: Denies cough or shortness of breath Cardiovascular: Denies chest pain or palpitations GI: Denies abdominal pain, nausea, or vomiting : Denies dysuria or hematuria Musculoskeletal: Denies back pain or joint pain Integument: Denies rash or skin lesions Neurologic: Denies headache, focal weakness or sensory changes Review of systems limited secondary to alcohol intoxication Current Medications: Current Meds: Current Medications Medications (Trade) Dose Ordered Sig/Amy Start Time Stop Time Status Last Admin Dose Admin Multivitamins/ Minerals 10 ml/ Folic Acid 1 mg/ Thiamine HCl 100 mg/Sodium Chloride 1,011.3 ml @ 1,000.187 mls/hr 1X ONCE 07/09/21 23:00 07/10/21 00:00 07/09/21 23:20 1,000.187 MLS/HR Allergies: Allergies: Allergies Coded Allergies Type Severity Reaction Last Updated Verified No Known Drug Allergies 10/08/13 No Physical Exam: PE: Constitutional: Well developed, well nourished, disheveled, non-toxic appearance HENT: Normocephalic, healing abrasions noted to scalp, mucous membranes moist Eyes: PERRL, EOMI, conjunctiva normal, no discharge, horizontal nystagmus noted Neck: Normal range of motion, supple Lungs & Thorax: No respiratory distress, equal chest rise and fall Abdomen: Soft, no tenderness, no guarding/rebound tenderness/distention; pelvis stable and nontender Skin: Warm, dry, no erythema, abrasions noted to scalp Back: No tenderness, no CVA tenderness Extremities: No tenderness, ROM intact, no edema Neurologic: Alert, intoxicated, slurred speech, no focal deficits noted Psychologic: Affect normal, judgment abnormal Current Patient Data: Labs: Laboratory Tests Test 07/09/21 23:20 White Blood Count 5.3 x10^3/uL (4.0-11.0) Red Blood Count 4.41 x10^6/uL (4.30-5.70) Hemoglobin 14.8 g/dL (13.0-17.5) Hematocrit 43.6 % (39.0-53.0) Mean Corpuscular Volume 99 fL (79-100) Mean Corpuscular Hemoglobin 34 pg (25-35) Mean Corpuscular Hemoglobin Concent 34 g/dL (31-37) Red Cell Distribution Width 13.8 % (11.5-14.5) Platelet Count 218 x10^3/uL (140-400) Neutrophils (%) (Auto) 50 % (31-73) Lymphocytes (%) (Auto) 38 % (24-48) Monocytes (%) (Auto) 7 % (0-9) Eosinophils (%) (Auto) 4 % (0-3) H Basophils (%) (Auto) 1 % (0-3) Neutrophils # (Auto) 2.6 x10^3uL (1.8-7.7) Lymphocytes # (Auto) 2.0 x10^3/uL (1.0-4.8) Monocytes # (Auto) 0.4 x10^3/uL (0.0-1.1) Eosinophils # (Auto) 0.2 x10^3/uL (0.0-0.7) Basophils # (Auto) 0.1 x10^3/uL (0.0-0.2) Vital Signs: Vital Signs Date Time Temp Pulse Resp B/P (MAP) Pulse Ox O2 Delivery O2 Flow Rate FiO2 07/09/21 22:55 97.8 86 18 153/91 (111) 98 Room Air EKG: EKG: @2313 NSR at 91bpm, NO ST elevation, QRS 82ms, QT/QTc 360/444ms Radiology/Procedures: Radiology/Procedures: PROCEDURE: CT HEAD AND CERVICAL SPINE WO EXAMINATION: CT head and cervical spine without IV contrast. INDICATION:61 years, Male, fall, ethanol abuse. COMPARISON: Same day CT brain and cervical spine. TECHNIQUE: Spiral acquisition of contiguous images from the skull base to the vertex were obtained. CT of the cervical spine was obtained using contiguous spiral imaging from the skull base to the upper thoracic level. Sagittal and c oronal 2D reformatted series were provided by the technologist. Soft tissue and bone window algorithms were reviewed. Exposure: One or more of the following individualized dose reduction techniques were utilized for this examination: 1. Automated exposure control 2. Adjustment of the mA and/or kV according to patient size 3. Use of iterative reconstruction technique. FINDINGS: CT HEAD: Moderate brain parenchymal volume loss. Similar supratentorial periventricular white matter hypodensities, indeterminate but most likely representing chronic microangiopathic disease. Neither mass, midline shift, intracranial hemorrhage, acute/subacute ischemic changes, nor extraaxial fluid collections are seen. Similar mucosal thickening in bilateral maxillary sinuses. Remaining visualized paranasal sinuses, mastoid air cells, and middle ears are clear. The orbital contents appear within normal limits. CT CERVICAL SPINE: Anatomic alignment of the cervical spine is maintained. Neither fracture, subluxation, nor traumatic spondylolisthesis is seen. The vertebral body heights are preserved. Multilevel the changes in the cervical spine, worst at L4-5 and C5-6. There is no evidence of a large intraspinal hematoma. The prevertebral and paravertebral soft tissues are within normal limits. IMPRESSION: 1. No acute intracranial abnormality. 2. No acute fracture of the cervical spine. Electronically signed by: Georgia Arcos MD (07/09/2021 11:20 PM) [facility] Heart Score: C/O Chest Pain: N/A Course & Med Decision Making: Course & Med Decision Making Pertinent Labs and Imaging studies reviewed. (See chart for details) Patient stable for discharge with outpatient follow-up with PCP. Discussed findings and plan with patient, who acknowledges understanding and agreement. Dragon Disclaimer: Miguel Angel Disclaimer: This electronic medical record was generated, in whole or in part, using a voice recognition dictation system. Departure Departure: Impression: Primary Impression: Alcohol intoxication Qualified Codes: F10.920 - Alcohol use, unspecified with intoxication, uncomplicated Additional Impression: Hx of fall Disposition: 01 HOME / SELF CARE / HOMELESS Condition: STABLE Referrals: MARTINE ARCHULETA MD (PCP) Patient Instructions: Alcohol Intoxication, Waru-[id number], Alcohol and Drug Addiction, Finding Treatment, Fall Prevention and Home Safety, [id number] Additional Instructions: Please call [facility] at to seek help for your mental health and/or drug /alcohol abuse. RAFIA ADAME DO Jul 09, 2021 23:46
[2021-07-09 23:50] LABS: CALCIUM 8.1 mg/dL (8.5-10.1); CREATININE 0.8 mg/dL (0.7-1.3); GFR 98.9
[2021-07-10 00:05] LABS: ALBUMIN 3.6 g/dL (3.4-5.0); ALBUMIN/GLOBULIN RATIO 0.9 (1.0-1.7); MAGNESIUM 2.5 mg/dL (1.8-2.4); TOTAL BILIRUBIN 0.2 mg/dL (0.2-1.0); TOTAL PROTEIN 7.6 g/dL (6.4-8.2)
--- NOTE | 2021-07-10 01:15 | EKG ---
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
[2021-07-10 01:40] LABS: BACTERIA,URINE 0 /HPF (0-FEW); BILIRUBIN,URINE NEG (NEG); CLARITY,URINE CLEAR; COLOR,URINE YELLOW; GLUCOSE,URINE NEG (NEG); NITRITE,URINE NEG (NEG); RBC,URINE 0 /HPF (0-2); SQUAMOUS EPITHELIAL CELL,UR OCC /LPF; UROBILINOGEN,URINE 0.2 mg/dL (0.2 mg/dL); WBC,URINE OCC /HPF (0-4)
[2021-07-10 01:44] LABS: BARBITURATES NEG (NEG); BENZODIAZEPINES NEG (NEG); CANNABINOIDS NEG (NEG); COCAINE NEG (NEG); METHADONE NEG (NEG); OPIATES NEG (NEG); PHENCYCLIDINE NEG (NEG)
[2021-07-10 01:45] VITALS: BP 121/90
[2021-07-10 01:54] LABS: AMPHETAMINE/METHAMPHETAMINE NEG (NEG)
== END 2021-07-10 01:50 | disposition home or self-care (01) ==
LOC: ER 22:33
DX: F10.229 Alcohol dependence with intoxication, unspecified (principal); I10 Essential (primary) hypertension; I25.2 Old myocardial infarction; F17.210 Nicotine dependence, cigarettes, uncomplicated; Z91.81 History of falling; Y90.8 Blood alcohol level of 240 mg/100 ml or more
CPT/HCPCS: 36415; 70450; 72125; 80053; 80307; 81001; 82553; 83735; 84484; 85025; 93005; 96365; 99285; G0480; J7030

== ENCOUNTER 2021-07-14 04:13 | Emergency (ER) | payer MEDICARE ==
[~2021-07-14] VITALS: Ht 185.4 cm; Wt 84.0 kg
--- NOTE | 2021-07-14 04:17 | PHYS DOC ---
Past History Past Medical History: Alcoholism, Hypertension, [place], Seizure, Other Additional Past Medical Histor: ETOH abuse Past Surgical History: Other Additional Past Surgical Histo: ortho surgeries Smoking: Cigarettes Alcohol Use: Heavy Drug Use: None Adult General HPI HPI Patient is a 61-year-old male with a past medical history significant for alcoholism who presents to the emergency department after falling in his drivew ay while taking out his trash. States he has had many drinks of whiskey today but is not sure exactly how many with last drink being about an hour ago. States he fell backwards hitting his head but denies loss of consciousness, changes in vision, neck pain, chest pain, shortness of breath, abdominal pain, nausea, vomiting. Denies any numbness/weakness/tingling. Denies any trouble sitting, standing or walking. Denies any other drug use. Review of Systems Review of Systems Review of systems otherwise unremarkable except noted in HPI Allergies Allergies Allergies Coded Allergies Type Severity Reaction Last Updated Verified No Known Drug Allergies 10/08/13 No Physical Exam Physical Exam Constitutional: Well developed, well nourished, no acute distress, non-toxic appearance. [] HENT: Normocephalic, atraumatic, bilateral external ears normal, oropharynx moist, no hemotympanum, no oral exudates, nose normal. [] Eyes: PERRLA, EOMI, conjunctiva normal, no discharge. [] Neck: Normal range of motion, no tenderness, supple, no stridor. [] Cardiovascular:Heart rate regular rhythm, no murmur [] Lungs & Thorax: Bilateral breath sounds clear to auscultation [] Abdomen: Bowel sounds normal, soft, no tenderness, no masses, no pulsatile masses. [] Skin: Warm, dry, no erythema, no rash. [] Back: No tenderness, no CVA tenderness. [] Extremities: No tenderness, no cyanosis, no clubbing, ROM intact, no edema. [] Neurologic: Alert and oriented X 3, normal motor function, normal sensory function, can sit, stand and walk, no focal deficits noted. [] Psychologic: Affect normal, judgment abnormal, mood normal, no suicidal ideation, homicidal ideation or hallucinations. [] EKG EKG [] Radiology/Procedures Radiology/Procedures [] Heart Score C/O Chest Pain: No Risk Factors: Risk Factors: DM, Current or recent (<one month) smoker, HTN, HLP, family history of CAD, obesity. Risk Scores: Risk Factors: DM, Current or recent (<one month) smoker, HTN, HLP, family history of CAD, obesity. Course & Med Decision Making Course & Med Decision Making Patient is a 61-year-old male who presents after a fall in his driveway Vital signs not concerning. Physical exam noted above. Given Tylenol. Imaging of the head with no new concerning findings. Patient took p.o. without issue. Discussed all findings with patient. Discussed need for cessation of alcohol at the amounts that he is drinking in as this increases risk for significant and severe injuries and even . Advised to follow-up in the morning with primary care physician. Gave return precautions to the ED. Patient grateful, verbalized understanding and agreed with plan of discharge. [] Dragon Disclaimer Dragon Disclaimer This electronic medical record was generated, in whole or in part, using a voice recognition dictation system. Departure Departure: Impression: Primary Impression: EtOH dependence Additional Impression: Fall Disposition: 01 HOME / SELF CARE / HOMELESS Condition: STABLE Referrals: MARTINE ARCHULETA MD (PCP) Patient Instructions: Alcohol Problems, Fall Prevention and Home Safety Additional Instructions: Thank you for coming into the emergency department tonight and allowing us to take care of you. Please read the attached information very carefully go back over the things we discussed. Please consider cutting back on your alcohol use as this can increase your risk for significant injuries, disability and as we discussed. Please call your primary care physician in the morning to update on your ED visit and set up a follow-up as soon as you can. Please come back with new or concerning symptoms as discussed. Problem Qualifiers KENDY GARNER MD Jul 14, 2021 04:17
[2021-07-14] MEDS ORDERED: ACETAMINOPHEN 500 MG TABLET PO ONE (04:30)
--- NOTE | 2021-07-14 05:18 | RAD ---
PQRS Compliance Statement: One or more of the following individualized dose reduction techniques were utilized for this examinat ion: 1. Automated exposure control 2. Adjustment of the mA and/or kV according to patient size 3. Use of iterative reconstruction technique CT HEAD WITHOUT CONTRAST History: Reason: ETOH, fall / Comparison: CT head without contrast, 5 days ago. Technique: Axial images are obtained of the head from the skull base through the vertex without IV co ntrast. Findings: No mass-effect, midline shift, extra-axial fluid collection, hemorrhage, or obvious acute infarction is identified. Basilar cisterns are patent. The ventricles and sulci are prominent, consistent with generalized cerebral atrophy. There is minima l periventricular white matter hypoattenuation. This is a nonspecific finding but is commonly due to chronic small vessel ischemic disease. Bone windows demonstrate no acute calvarial abnormality. The visualized paranasal sinuses are clear. Mastoid air cells are well aerated. IMPRESSION: 1. No acute intracranial abnormality. 2. Generalized cerebral atrophy. Electronically signed by: Jerel Ricci MD (07/14/2021 5:15 AM) [facility]
[2021-07-14 05:45] VITALS: BP 139/88
== END 2021-07-14 06:40 | disposition home or self-care (01) ==
LOC: ER 04:13
DX: F10.20 Alcohol dependence, uncomplicated (principal); I10 Essential (primary) hypertension; I25.2 Old myocardial infarction; F17.210 Nicotine dependence, cigarettes, uncomplicated; W18.39XA Other fall on same level, initial encounter; Y93.89 Activity, other specified; Y92.89 Other specified places as the place of occurrence of the external cause; Y99.8 Other external cause status
CPT/HCPCS: 70450; 82947; 99284

== ENCOUNTER 2021-07-16 14:49 | Emergency (ER) | payer MEDICARE ==
[~2021-07-16] VITALS: Ht 185.4 cm; Wt 84.0 kg
--- NOTE | 2021-07-16 15:13 | PHYS DOC ---
Past History Past Medical History: Alcoholism, Hypertension, [place], Seizure, Other Additional Past Medical Histor: ETOH abuse (GO NIX APRN) Past Surgical History: No Surgical History Additional Past Surgical Histo: ortho surgeries (GO NIX APRN) Smoking: Cigarettes Alcohol Use: Heavy Drug Use: None (GO NIX APRN) General Adult EDM: Chief Complaint: ALCOHOL INTOXICATION HPI: HPI: Patient is a 61-year-old male who presents to the emergency department via EMS f or chest pain. Patient reports that he drank a pint of alcohol today, patient is well-known to this emergency department for alcohol use. Patient reports that 2 days ago he started experiencing left-sided chest pain. He rates it 2 out of 10 and describes it as a burning pain. Patient denies shortness of breath, cough, fevers. (GO NIX APRN) Review of Systems: Review of Systems: Constitutional: See HPI Respiratory: See HPI Cardiovascular: See HPI HPI and review of systems limited due to patient's cooperation with care sec ondary to alcohol use (GO NIX APRN) Current Medications: Current Meds: Current Medications Medications (Trade) Dose Ordered Sig/Amy Start Time Stop Time Status Last Admin Dose Admin Sodium Chloride 1,000 ml @ 1,000 mls/hr Q1H 07/16/21 15:15 07/16/21 16:14 (GO NIX APRN) Allergies: Allergies: Allergies Coded Allergies Type Severity Reaction Last Updated Verified No Known Drug Allergies 10/08/13 No (GO NIX APRN) Physical Exam: PE: Constitutional: Well developed, well nourished, no acute distress, non-toxic appearance. [] HENT: Normocephalic, atraumatic, bilateral external ears normal, oropharynx moist, no oral exudates, nose normal. [] Eyes: PERRL, EOMI, conjunctiva normal, no discharge. [] Neck: Normal range of motion, no stridor Cardiovascular:Heart rate regular rhythm, no murmur [] Lungs & Thorax: Bilateral breath sounds clear to auscultation [] Abdomen: Bowel sounds normal, soft, no tenderness, no masses, no pulsatile masses. [] Skin: Warm, dry, no erythema, no rash. [] Back: Normal range of motion Extremities: No tenderness, no cyanosis, no clubbing, ROM intact, no edema. [] Neurologic: Alert and oriented X 3, normal motor function, normal sensory function, no focal deficits noted. [] Psychologic: Affect normal, judgement normal, mood normal. [] (GO NIX APRN) Current Patient Data: Labs: Laboratory Tests Test 07/16/21 15:07 07/16/21 15:20 White Blood Count 5.3 x10^3/uL Red Blood Count 4.41 x10^6/uL Hemoglobin 14.9 g/dL Hematocrit 44.6 % Mean Corpuscular Volume 101 fL Mean Corpuscular Hemoglobin 34 pg Mean Corpuscular Hemoglobin Concent 33 g/dL Red Cell Distribution Width 13.9 % Platelet Count 203 x10^3/uL Neutrophils (%) (Auto) 54 % Lymphocytes (%) (Auto) 33 % Monocytes (%) (Auto) 9 % Eosinophils (%) (Auto) 3 % Basophils (%) (Auto) 1 % Neutrophils # (Auto) 2.9 x10^3uL Lymphocytes # (Auto) 1.8 x10^3/uL Monocytes # (Auto) 0.5 x10^3/uL Eosinophils # (Auto) 0.1 x10^3/uL Basophils # (Auto) 0.1 x10^3/uL Sodium Level 144 mmol/L Potassium Level 3.9 mmol/L Chloride Level 107 mmol/L Carbon Dioxide Level 26 mmol/L Anion Gap 11 Blood Urea Nitrogen 8 mg/dL Creatinine 0.8 mg/dL Estimated GFR (Cockcroft-Gault) 98.9 BUN/Creatinine Ratio 10 Glucose Level 112 mg/dL Calcium Level 8.3 mg/dL Total Bilirubin 0.2 mg/dL Aspartate Amino Transf (AST/SGOT) 35 U/L Alanine Aminotransferase (ALT/SGPT) 26 U/L Alkaline Phosphatase 96 U/L Troponin I High Sensitivity 5 ng/L Total Protein 7.7 g/dL Albumin 4.0 g/dL Albumin/Globulin Ratio 1.1 Current Medications Medications (Trade) Dose Ordered Sig/Amy Route PRN Reason Start Time Stop Time Status Last Admin Dose Admin Sodium Chloride 1,000 ml @ 1,000 mls/hr Q1H IV 07/16/21 15:15 07/16/21 16:14 07/16/21 15:15 (GO NIX APRN) EKG: EKG: [] EKG performed by ER staff at 1528 shows sinus rhythm with a rate of 86, QTc of 460, no STEMI read by Dr. Ferrell at 1531 (GO NIX APRN) Radiology/Procedures: Radiology/Procedures: []PROCEDURE: PORTABLE CHEST 1V INDICATION: Reason: cp / Spl. Instructions: / History: COMPARISON: July 09, 2021 FINDINGS: Single view of chest obtained. Mild linear opacities at left lung base. Cardiomediastinal silhouette is similar to prior. IMPRESSION: * Mild linear opacity at the left lung base which could be secondary to atelectasis with mild infiltrate not excluded. Electronically signed by: Stewart Lovell MD (07/16/2021 3:33 PM) [id number] DICTATED AND SIGNED BY: STEWART LOVELL MD DATE: 07/16/211530 CC: GO NIX APRN; MARTINE ARCHULETA MD ~MTH0 0 (GO NIX APRN) Heart Score: C/O Chest Pain: Yes HEART Score for Chest Pain: HEART Score for Chest Pain Response (Comments) Value History Slighlty/Non-Suspicious 0 ECG Normal 0 Age >45 - < 65 1 Risk Factors 1 or 2 Risk Factors 1 Troponin < Normal Limit 0 Total 2 Risk Factors: Risk Factors: DM, Current or recent (<one month) smoker, HTN, HLP, family history of CAD, obesity. Risk Scores: Score 0 - 3: 2.5% MACE over next 6 weeks - Discharge Home Score 4 - 6: 20.3% MACE over next 6 weeks - Admit for Clinical Observation Score 7 - 10: 72.7% MACE over next 6 weeks - Early Invasive Strategies (GO NIX APRN) Course & Med Decision Making: Course & Med Decision Making Pertinent Labs and Imaging studies reviewed. (See chart for details) [] Patient presents for left-sided chest pain that started 2 days ago. Patient is well-known to this emergency department for alcohol use and chronic chest pain. Patient reports drinking a pint of alcohol today. Patient is alert and oriented. Patient is not cooperative with care or questioning. Work-up in the ER consisted of blood work, EKG and chest x-ray. Patient treated with IV fl uids. Patient given food tray. Patient's blood work was unremarkable, negative troponin, heart score is 2. Serial troponins not indicated as cp started 2 days ago. Chest x-ray shows a minimal linear opacity in the left lung base which could be atelectasis versus infiltrate. Patient be treated for pneumonia with an antibiotic. Patient's vital signs are stable. Patient advised to discontinue alcohol use. I discussed with patient all findings and diagnostic testing as well as the need to follow-up with PCP for further evaluation and treatment or return to the ER if any new or worsening symptoms. Strict return precautions were also discussed at length. Patient voiced understanding and agreement with the plan. Patient is hemodynamically stable at the time of disposition. (GO NIX APRN) Dragon Disclaimer: Dragon Disclaimer: This electronic medical record was generated, in whole or in part, using a voice recognition dictation system. (GO NIX APRN) Attending Co-Sign The patient was seen and interviewed as well as examined at the bedside. The chart was reviewed. The case was discussed. Agree with the plan of care. (PRAMOD FERRELL DO) Departure Departure: Impression: Primary Impression: Atypical chest pain Disposition: HOME / SELF CARE / HOMELESS Condition: GOOD Referrals: MARTINE ARCHULETA MD (PCP) Patient Instructions: Alcohol and Drug Addiction, Finding Treatment, Chest Pain (Nonspecific) Additional Instructions: You were seen in the emergency department today for chest pain. At this time, it does not appear that you are experiencing acute coronary syndrome. Your blood work was unremarkable. Your chest x-ray showed a possible infiltrate indicating pneumonia. This will be treated with an antibiotic. Please start and finish the antibiotic completely. Discontinue your alcohol use. Follow-up with your primary care provider tomorrow regarding your ER visit. Please return to the emergency department for reevaluation if you develop chest pain, shortness of breath, high fevers refractory to treatment, intractable nausea or vomiting, weakness, lightheadedness. GO NIX APRN Jul 16, 2021 15:13 PRAMOD FERRELL DO Jul 17, 2021 07:47
[2021-07-16] MEDS ORDERED: IV NORMAL SALINE 1,000ML 1,000 ML IV SCH (15:15)
[2021-07-16 15:35] LABS: BASO # 0.1 x10^3/uL (0.0-0.2); BASO % 1 % (0-3); EOS # 0.1 x10^3/uL (0.0-0.7); EOS % 3 % (0-3); HEMATOCRIT 44.6 % (39.0-53.0); HEMOGLOBIN 14.9 g/dL (13.0-17.5); LYMPH # 1.8 x10^3/uL (1.0-4.8); LYMPH % 33 % (24-48); MEAN CORPUSCULAR HEMOGLOBIN 34 pg (25-35); MEAN CORPUSCULAR HGB CONC 33 g/dL (31-37); MEAN CORPUSCULAR VOLUME 101 fL (79-100); MONO # 0.5 x10^3/uL (0.0-1.1); MONO % 9 % (0-9); NEUT # 2.9 x10^3uL (1.8-7.7); NEUT % 54 % (31-73); PLATELET COUNT 203 x10^3/uL (140-400); RED BLOOD COUNT 4.41 x10^6/uL (4.30-5.70); RED CELL DISTRIBUTION WIDTH 13.9 % (11.5-14.5); WHITE BLOOD COUNT 5.3 x10^3/uL (4.0-11.0)
--- NOTE | 2021-07-16 15:36 | RAD ---
INDICATION: Reason: cp / Spl. Instructions: / History: COMPARISON: July 09, 2021 FINDINGS: Single view of chest obtained. Mild linear opacities at left lung base. Cardiomediastinal silhouette is similar to prior. IMPRESSION: * Mild linear opacity at the left lung base which could be secondary to atelectasis with mild infilt rate not excluded. Electronically signed by: Pato Kearney MD (07/16/2021 3:33 PM) [id number]
[2021-07-16 15:44] LABS: CALCIUM 8.3 mg/dL (8.5-10.1); CREATININE 0.8 mg/dL (0.7-1.3); GFR 98.9; POTASSIUM 3.9 mmol/L (3.5-5.1)
[2021-07-16 15:50] LABS: ALBUMIN/GLOBULIN RATIO 1.1 (1.0-1.7); TOTAL BILIRUBIN 0.2 mg/dL (0.2-1.0); TOTAL PROTEIN 7.7 g/dL (6.4-8.2)
[2021-07-16 16:21] VITALS: BP 138/88
--- NOTE | 2021-07-16 17:20 | EKG ---
[address] [address] Test Date: 2021-07-16 Test Time: 15:28:55 Pat Name: GAVINO CHRISTENSEN Department: Room: Gender: M Coding Director: LUISA : 1960 Requested By: GO NIX Order Number: [id number] Reading MD: Cj Mccoy Measurements Intervals [place] Rate: 86 P: -47 OR: 132 QRS: -4 QRSD: 84 T: 28 QT: 382 QTc: 460 Interpretive Statements SINUS RHYTHM LEFTWARD AXIS Electronically Signed On 07-18-2021 9:26:46 MANAGER FRONT OFFICE by Cj Mccoy
== END 2021-07-16 16:22 | disposition home or self-care (01) ==
LOC: ER 14:49
DX: R07.89 Other chest pain (principal); F10.20 Alcohol dependence, uncomplicated; I10 Essential (primary) hypertension; I25.2 Old myocardial infarction; F17.210 Nicotine dependence, cigarettes, uncomplicated; Y90.9 Presence of alcohol in blood, level not specified
CPT/HCPCS: 36415; 71045; 80053; 84484; 85025; 93005; 96360; 99285; J7030

== ENCOUNTER 2021-08-07 23:27 | Emergency (ER) | payer MEDICARE ==
[~2021-08-07] VITALS: Ht 182.9 cm; Wt 84.0 kg
--- NOTE | 2021-08-07 23:36 | PHYS DOC ---
Past History Past Medical History: Alcoholism, Hypertension, IA, Seizure, Other Additional Past Medical Histor: ETOH abuse Past Surgical History: No Surgical History Additional Past Surgical Histo: ortho surgeries Smoking: Cigarettes Alcohol Use: Heavy Drug Use: None General Adult EDM: Chief Complaint: MECHANICAL FALL HPI: HPI: ". I guess I fell....".. " I fell yesterday and hurt my chest and Rt. flank.. ..". " I drank about two pints of Seagrams 7 whiskey..." " I drank too fucking much.. " Patient is a 61 year old female who presents with above hx and complaints of falling . Patient admits to daily heavy alcohol use. Patient advised that she had drank approximately 2 pints of whiskey tonight. Patient has frequent ED evaluations for alcohol intoxication. Patient complaining of head injury and contusions on right side of chest back flank area. Patient states right flank injury occurred yesterday. Head injury had occurred today. Patient was ambulatory at the scene. Review of Systems: Review of Systems: Constitutional: Denies fever or chills Eyes: Denies change in visual acuity HENT: complains of headache Respiratory: Denies cough or shortness of breath Cardiovascular: Denies chest pain or edema GI: Complains of right flank abdominal pain,. Nausea, vomiting, bloody stools or diarrhea : Denies dysuria Musculoskeletal: Denies back pain or joint pain Integument: Denies rash Neurologic: Denies headache, focal weakness or sensory changes Endocrine: Denies polyuria or polydipsia Lymphatic: Denies swollen glands Psychiatric: Denies depression or anxiety Family History: Family History: Noncontributory to presentation Current Medications: Current Meds: See nursing for home meds Allergies: Allergies: Allergies Coded Allergies Type Severity Reaction Last Updated Verified No Known Drug Allergies 10/08/13 No Physical Exam: PE: Constitutional: Mild distress, intoxicated appearance. [] HENT: Normocephalic, , bilateral external ears normal, oropharynx moist, no oral exudates, nose normal. Multiple contusions different stages of healing Eyes: PERRLA, EOMI, conjunctiva normal, no discharge. [] Neck: Normal range of motion, no tenderness, supple, no stridor. [] Cardiovascular: Tachycardia heart rate regular rhythm, no murmur [] Lungs & Thorax: Bilateral breath sounds equal apex with scattered wheezes on auscultation [] Abdomen: Bowel sounds normal, soft, no tenderness, no masses, no pulsatile masses. Right flank tenderness and ecchymosis Skin: Warm, dry, no erythema, no rash. Multiple contusions in various stages of healing Back: No tenderness, no CVA tenderness. [] Extremities: No tenderness, no cyanosis, no clubbing, ROM intact, no edema. [] Neurologic: Alert and oriented X 3, normal motor function, normal sensory function, no focal deficits noted. Wide gait. Hand Ii Blocker equal. Right-hand dominant. Discoordinated but amatory without problems Psychologic: Affect flat, judgement normal, mood normal. [] EKG: EKG: My interpretation EKG shows a sinus rhythm at 96 bpm. Has leftward axis. No findings of acute STEMI or contralateral changes. Time of EKG is 00 41-minute [] My interpretation of second EKG shows a sinus tachycardia 104 but no acute morp hology changes from prior. No findings of hypokalemia. Time of EKG is 438 hours. Radiology/Procedures: Radiology/Procedures: [place] [address] IMAGING REPORT Signed PATIENT: GAVINO CHRISTENSEN ACCOUNT: [id number] : 1960 LOCATION: ER AGE: 61 SEX: M EXAM STATUS: REG ER ORD. PHYSICIAN: ZAN MCKEON MD REASON: Fall, cp, ETOH PROCEDURE: PORTABLE CHEST 1V XR CHEST 1V 08/07/2021 11:50 PM INDICATION: Fall, chest pain COMPARISON: None available TECHNIQUE: Portable frontal view of the chest is provided. FINDINGS: The cardiomediastinal silhouette is within normal limits. Lungs are clear. There are no significant pleural effusions. There is no pulmonary vascular congestion. No pneumothorax. Subacute to chronic healed left-sided rib deformities. IMPRESSION: There is no acute cardiopulmonary process. Electronically signed by: Cady Cai MD (08/08/2021 12:45 AM) [facility] DICTATED AND SIGNED BY: CADY CAI MD DATE: 08/08/21 0044 CC: ZAN MCKEON MD; MARTINE ARCHULETA MD ~MTH0 0 [[place] [id number] IMAGING REPORT Signed PATIENT: GAVINO CHRISTENSEN ACCOUNT: [id number] : 1960 LOCATION: ER AGE: 61 SEX: M EXAM STATUS: REG ER ORD. PHYSICIAN: ZAN MCKEON MD REASON: Fall-intoxicated, headache, neck pain PROCED[facility]: [facility] Compliance Statement: One or more of the following individualized dose reduction techniques were utilized for this examination: 1. Automated exposure control 2. Adjustment of the mA and/or kV according to patient size 3. Use of iterative reconstruction technique CT head and cervical spine without contrast 08/07/2021 11:50 PM INDICATION: Headache, fall. Intoxicated. COMPARISON: CT head and cervical spine 07/09/2021 TECHNIQUE: Multiple axial CT images of the head were obtained from skull base through the vertex without intravenous contrast. Multiple axial CT images of the cervical spine were obtained without intravenous contrast. Coronal and sagittal reformats are provided. FINDINGS: Head: Ventricles, sulci and basal cisterns are prominent compatible with mild to moderate generalized cerebral volume loss, stable. There is no hydrocephalus. Moss-white matter differentiation is normal. There is no acute intracranial hemorrhage. There is no mass, mass effect or midline shift. Posterior fossa is normal in appearance. Visualized portions of the orbits are normal. Mild/moderate mucosal thickening of the maxillary sinuses. Mastoid air cells are well aerated. Scalp and calvaria are normal. Cervical spine: There is extra convex curvature of the cervical spine. 2 mm retrolisthesis of C4 on C5. Mild disc height loss at C3-C4 and C4-C5 and C5-C6. Skull base is intact. Craniocervical junction is normal in appearance. Atlantoaxial articulation is normal. Vertebral body heights are maintained without evidence for acute fracture. At C3-C4, there is a posterior discussed by complex with mild uncovertebral joint disease resulting in mild right neuroforaminal stenosis. At C4-C5, there is a posterior disc osteophyte complex with moderate uncovertebral joint disease resulting in moderate right and mild left neural foraminal stenosis. Mild facet arthropathy. Mild osseous spinal canal stenosis. At C5-C6, there is a central calcified disc protrusion. Mild facet arthropathy with mild left uncovertebral joint disease resulting in mild bilateral neuroforaminal stenosis and mild osseous spinal canal stenosis. There is no prevertebral soft tissue swelling. Thyroid gland is normal in appearance. Visualized portions of the lung apices are normal without evidence for suspicious pulmonary nodule or infiltrate. IMPRESSION: 1. No acute intracranial hemorrhage. Mild to moderate generalized cerebral volume loss. 2. No acute fracture of cervical spine. Mild cervical spondylosis, unchanged. Electronically signed by: Cady Cai MD (08/08/2021 12:44 AM) [facility] DICTATED AND SIGNED BY: CADY CAI MD DATE: 08/08/2139 CC: ZAN MCKEON MD; MARTINE ARCHULETA MD ~[facility]0 0 ][address] [address] IMAGING REPORT Signed PATIENT: GAVINO CHRISTENSEN ACCOUNT: [id number] : 1960 LOCATION: ER AGE: 61 SEX: M EXAM STATUS: REG ER ORD. PHYSICIAN: ZAN MCKEON MD REASON: Fall, chest and abdomen pain, ETOH Omni 300 75cc PROCEDURE: CT CHEST ABD PELVIS W/CONTRAST PQRS Compliance Statement: One or more of the following individualized dose reduction techniques were utilized for this examination: 1. Automated exposure control 2. Adjustment of the mA and/or kV according to patient size 3. Use of iterative reconstruction technique CT CHEST+ABD+PELVIS W 08/07/2021 12:05 AM INDICATION: Fall, chest and abdominal pain COMPARISON: None available TECHNIQUE: Multiple axial CT images of the chest, abdomen and pelvis were obtained after the intravenous administration of 75 mL Omnipaque 300. Coronal and sagittal reformats are provided. FINDINGS: Thyroid gland is normal in appearance. There are no pathologically enlarged axillary, mediastinal or hilar lymph nodes. Heart size is within normal limits. Thoracic aorta is normal in course and caliber. There is no significant pericardial effusion. Thoracic esophagus is normal in appearance. Anterior chest wall appears intact. 3 mm solid noncalcified pulmonary nodule identified within the right lower lobe (series 4, image 54).. There are no pleural effusions, pulmonary vascular congestion or pneumothorax. Lungs are clear without focal airspace consolidation. Central airways are clear. 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 There is calcification involving the lateral eighth rib fracture, ninth and 10th rib fractures. There is moderate displaced posterior left 11th rib fracture. Callus formation involving a posterior left 12th rib fracture. There is minimal height loss involving T6, T7 and T8 and T11 which appear chronic Hypoattenuation the hepatic parenchyma system of mild hepatic steatosis. Rounded high attenuation lesion within the medial segment left hepatic lobe measures 5 mm and could represent an area of focal fatty sparing. Spleen, adrenal glands and pancreas are normal in appearance. Calcified gallstone identified within the gallbladder. The abdominal aorta is normal in course and caliber. There are no pathologically enlarged lymph nodes in the abdomen and pelvis. There is no abdominal free fluid. There is no free intraperitoneal air. 10 mm simple cyst in the superior pole the left kidney. Duplex right renal collecting system with mild prominence of the right ureter. Urinary bladder is mildly distended with mild prominence of the bilateral renal collecting systems. Prostate is borderline in size measuring 4.8 x 3.9 cm. Mild diverticulosis. Small and large bowel are normal in caliber. No bowel obstruction or inflammation. Small hiatal hernia. Small umbilical hernia containing nondilated loop of small bowel. Left hip hardware is identified. There is superior plate compression deformity of L2 with 50 percent height loss appears chronic. Minimal height loss at L3 measuring at least 15 percent is age indeterminate. Transverse processes and spinous processes are intact. IMPRESSION: 1. Left-sided rib deformities appear late subacute to chronic. No definite acute on chronic fractures identified. There is moderate persistent displacement of the left 11th rib fracture. No pneumothorax. 2. 3 mm solid noncalcified pulmonary nodule right lower lobe. Fleischner guidelines for incidentally detected pulmonary nodules suggests no routine follow-up for low risk patients and optional CT at 12 months for high risk patients with solid noncalcified pulmonary nodules less than 6 mm in size. 3. Hepatic steatosis. 4. Cholelithiasis. 5. There is distention of the urinary bladder with bilateral mild pelvic caliectasis and ureteral distention. Correlate with any outlet obstruction. Post void sonogram of the kidneys could be of benefit. 6. Mild prostatomegaly. 7. Age indeterminate superior endplate compression deformity of L3 with 15 percent height loss. Correlate with point tenderness. If there is persistent clinical concern, further evaluation with MRI of the lumbar spine could be of benefit. Electronically signed by: Cady Cai MD (08/08/2021 12:52 AM) [facility] DICTATED AND SIGNED BY: CADY CAI MD DATE: 08/08/2144 CC: ZAN MCKEON MD; MARTINE ARCHULETA MD ~MTH0 0 Heart Score: C/O Chest Pain: Yes HEART Score for Chest Pain: HEART Score for Chest Pain Response (Comments) Value History Slighlty/Non-Suspicious 0 ECG Normal 0 Age >45 - < 65 1 Risk Factors 1 or 2 Risk Factors 1 Troponin < Normal Limit 0 Total 2 Risk Factors: Risk Factors: DM, Current or recent (<one month) smoker, HTN, HLP, family history of CAD, obesity. Risk Scores: Score 0 - 3: 2.5% MACE over next 6 weeks - Discharge Home Score 4 - 6: 20.3% MACE over next 6 weeks - Admit for Clinical Observation Score 7 - 10: 72.7% MACE over next 6 weeks - Early Invasive Strategies Course & Med Decision Making: Course & Med Decision Making Pertinent Labs and Imaging studies reviewed. (See chart for details) Patient encouraged avoid further alcohol at night. Consider rehab program. Patient high potassium foods. Follow-up primary care. Return if any concerns. Impression: 1. Alcohol intoxication 352 2. Hypokalemia 2.8 3. Multiple Contusions various stages of healing 4. Head Injury [] Dragon Disclaimer: Dragon Disclaimer: This electronic medical record was generated, in whole or in part, using a voice recognition dictation system. Departure Departure: Referrals: MARTINE ARCHULETA MD (PCP) [facility] Disclaimer This chart was dictated in whole or in part using Voice Recognition software in a busy, high-work load, and often noisy Emergency Department environment. It may contain unintended and wholly unrecognized errors or omissions. Dragon Disclaimer This chart was dictated in whole or in part using Voice Recognition software in a busy, high-work load, and often noisy Emergency Department environment. It may contain unintended and wholly unrecognized errors or omissions. ZAN MCKEON MD Aug 07, 2021 23:36
[2021-08-08] MEDS ORDERED: IV RINGERS SOLUTION,LACTATED 1,000 ML IV SCH
[2021-08-08] MEDS ORDERED: MVI, ADULT NO.4 WITH VIT K 10 ML, THIAMINE INJ 100 MG in IV RINGERS SOLUTION,LACTATED 1... IV ONE (00:15)
[2021-08-08] MEDS ORDERED: CONTRAST GIVEN. MC PRN (00:15)
[2021-08-08] MEDS ORDERED: IOHEXOL 300 MG/ML 75 ML VIAL. IV ONE (00:15)
[2021-08-08] MEDS ORDERED: FOLIC ACID 1 MG TABLET PO ONE (00:15)
[2021-08-08] MEDS ORDERED: THIAMINE 200 MG/2 ML VIAL. IV ONE (00:22)
[2021-08-08] MEDS ORDERED: MVI, ADULT NO.4 WITH VIT K 10 ML VIAL IV ONE (00:22)
[2021-08-08 00:38] LABS: BASO % 1 % (0-3); EOS # 0.1 x10^3/uL (0.0-0.7); EOS % 1 % (0-3); HEMATOCRIT 43.9 % (39.0-53.0); HEMOGLOBIN 14.9 g/dL (13.0-17.5); LYMPH # 1.6 x10^3/uL (1.0-4.8); LYMPH % 26 % (24-48); MEAN CORPUSCULAR HEMOGLOBIN 33 pg (25-35); MEAN CORPUSCULAR HGB CONC 34 g/dL (31-37); MEAN CORPUSCULAR VOLUME 98 fL (79-100); MONO # 0.6 x10^3/uL (0.0-1.1); MONO % 10 % (0-9); NEUT # 3.9 x10^3uL (1.8-7.7); NEUT % 63 % (31-73); PLATELET COUNT 131 x10^3/uL (140-400); RED BLOOD COUNT 4.49 x10^6/uL (4.30-5.70); RED CELL DISTRIBUTION WIDTH 13.8 % (11.5-14.5); WHITE BLOOD COUNT 6.2 x10^3/uL (4.0-11.0)
[2021-08-08 00:46] LABS: BACTERIA,URINE 0 /HPF (0-FEW); CLARITY,URINE CLEAR; COLOR,URINE YELLOW; GLUCOSE,URINE NEG (NEG); NITRITE,URINE NEG (NEG); RBC,URINE 0 /HPF (0-2); UROBILINOGEN,URINE 0.2 mg/dL (0.2 mg/dL)
--- NOTE | 2021-08-08 00:46 | RAD ---
PQRS Compliance Statement: One or more of the following individualized dose reduction techniques were utilized for this examinat ion: 1. Automated exposure control 2. Adjustment of the mA and/or kV according to patient size 3. Use of iterative reconstruction technique CT head and cervical spine without contrast 08/07/2021 11:50 PM INDICATION: Headache, fall. Intoxicated. COMPARISON: CT head and cervical spine 07/09/2021 TECHNIQUE: Multiple axial CT images of the head were obtained from skull base through the vertex with out intravenous contrast. Multiple axial CT images of the cervical spine were obtained without intrav enous contrast. Coronal and sagittal reformats are provided. FINDINGS: Head: Ventricles, sulci and basal cisterns are prominent compatible with mild to moderate generalized cereb ral volume loss, stable. There is no hydrocephalus. Moss-white matter differentiation is normal. Ther e is no acute intracranial hemorrhage. There is no mass, mass effect or midline shift. Posterior varun a is normal in appearance. Visualized portions of the orbits are normal. Mild/moderate mucosal thickening of the maxillary sinus es. Mastoid air cells are well aerated. Scalp and calvaria are normal. Cervical spine: There is extra convex curvature of the cervical spine. 2 mm retrolisthesis of C4 on C5. Mild disc hei ght loss at C3-C4 and C4-C5 and C5-C6. Skull base is intact. Craniocervical junction is normal in laura earance. Atlantoaxial articulation is normal. Vertebral body heights are maintained without evidence for acute fracture. At C3-C4, there is a posterior discussed by complex with mild uncovertebral joint disease resulting i n mild right neuroforaminal stenosis. At C4-C5, there is a posterior disc osteophyte complex with mod erate uncovertebral joint disease resulting in moderate right and mild left neural foraminal stenosis . Mild facet arthropathy. Mild osseous spinal canal stenosis. At C5-C6, there is a central calcified disc protrusion. Mild facet arthropathy with mild left uncovertebral joint disease resulting in mild bilateral neuroforaminal stenosis and mild osseous spinal canal stenosis. There is no prevertebral soft tissue swelling. Thyroid gland is normal in appearance. Visualized port ions of the lung apices are normal without evidence for suspicious pulmonary nodule or infiltrate. IMPRESSION: 1. No acute intracranial hemorrhage. Mild to moderate generalized cerebral volume loss. 2. No acute fracture of cervical spine. Mild cervical spondylosis, unchanged. Electronically signed by: Luanne Mar MD (08/08/2021 12:44 AM) [facility]
--- NOTE | 2021-08-08 00:47 | RAD ---
XR CHEST 1V 08/07/2021 11:50 PM INDICATION: Fall, chest pain COMPARISON: None available TECHNIQUE: Portable frontal view of the chest is provided. FINDINGS: The cardiomediastinal silhouette is within normal limits. Lungs are clear. There are no significant pleural effusions. There is no pulmonary vascular congestion. No pneumothora x. Subacute to chronic healed left-sided rib deformities. IMPRESSION: There is no acute cardiopulmonary process. Electronically signed by: Luanne Mar MD (08/08/2021 12:45 AM) [facility]
[2021-08-08 00:53] LABS: BARBITURATES NEG (NEG); BENZODIAZEPINES NEG (NEG); CANNABINOIDS NEG (NEG); COCAINE NEG (NEG); METHADONE NEG (NEG); OPIATES NEG (NEG); PHENCYCLIDINE NEG (NEG)
--- NOTE | 2021-08-08 00:55 | RAD ---
PQRS Compliance Statement: One or more of the following individualized dose reduction techniques were utilized for this examinat ion: 1. Automated exposure control 2. Adjustment of the mA and/or kV according to patient size 3. Use of iterative reconstruction technique CT CHEST+ABD+PELVIS W 08/07/2021 12:05 AM INDICATION: Fall, chest and abdominal pain COMPARISON: None available TECHNIQUE: Multiple axial CT images of the chest, abdomen and pelvis were obtained after the intraven ous administration of 75 mL Omnipaque 300. Coronal and sagittal reformats are provided. FINDINGS: Thyroid gland is normal in appearance. There are no pathologically enlarged axillary, mediastinal or hilar lymph nodes. Heart size is within normal limits. Thoracic aorta is normal in course and caliber. There is no significant pericardial e ffusion. Thoracic esophagus is normal in appearance. Anterior chest wall appears intact. 3 mm solid noncalcified pulmonary nodule identified within the right lower lobe (series 4, image 54). . There are no pleural effusions, pulmonary vascular congestion or pneumothorax. Lungs are clear with out focal airspace consolidation. Central airways are clear. 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 There is calcification involving the lateral eighth rib fracture, ninth and 10th rib fractures. There is mo derate displaced posterior left 11th rib fracture. Callus formation involving a posterior left 12th r ib fracture. There is minimal height loss involving T6, T7 and T8 and T11 which appear chronic Hypoattenuation the hepatic parenchyma system of mild hepatic steatosis. Rounded high attenuation les ion within the medial segment left hepatic lobe measures 5 mm and could represent an area of focal fa tty sparing. Spleen, adrenal glands and pancreas are normal in appearance. Calcified gallstone identi fied within the gallbladder. The abdominal aorta is normal in course and caliber. There are no pathol ogically enlarged lymph nodes in the abdomen and pelvis. There is no abdominal free fluid. There is n o free intraperitoneal air. 10 mm simple cyst in the superior pole the left kidney. Duplex right leah l collecting system with mild prominence of the right ureter. Urinary bladder is mildly distended wit h mild prominence of the bilateral renal collecting systems. Prostate is borderline in size measuring 4.8 x 3.9 cm. Mild diverticulosis. Small and large bowel are normal in caliber. No bowel obstruction or inflammation. Small hiatal hernia. Small umbilical hernia containing nondilated loop of small bow el. Left hip hardware is identified. There is superior plate compression deformity of L2 with 50 percent height loss appears chronic. Mini mal height loss at L3 measuring at least 15 percent is age indeterminate. Transverse processes and sp inous processes are intact. IMPRESSION: 1. Left-sided rib deformities appear late subacute to chronic. No definite acute on chronic fractures identified. There is moderate persistent displacement of the left 11th rib fracture. No pneumothorax . 2. 3 mm solid noncalcified pulmonary nodule right lower lobe. Fleischner guidelines for incidentally detected pulmonary nodules suggests no routine follow-up for low risk patients and optional CT at 12 months for high risk patients with solid noncalcified pulmonary nodules less than 6 mm in size. 3. Hepatic steatosis. 4. Cholelithiasis. 5. There is distention of the urinary bladder with bilateral mild pelvic caliectasis and ureteral dis tention. Correlate with any outlet obstruction. Post void sonogram of the kidneys could be of benefit . 6. Mild prostatomegaly. 7. Age indeterminate superior endplate compression deformity of L3 with 15 percent height loss. Corre late with point tenderness. If there is persistent clinical concern, further evaluation with MRI of t he lumbar spine could be of benefit. Electronically signed by: Luanne Mar MD (08/08/2021 12:52 AM) [facility]
[2021-08-08 00:59] LABS: CALCIUM 8.7 mg/dL (8.5-10.1); CREATININE 0.8 mg/dL (0.7-1.3); DIRECT BILIRUBIN 0.2 mg/dL (0.0-0.2); GFR 98.9; MAGNESIUM 2.1 mg/dL (1.8-2.4); TOTAL BILIRUBIN 0.9 mg/dL (0.2-1.0); TOTAL PROTEIN 7.7 g/dL (6.4-8.2)
[2021-08-08 00:59] LABS: AMPHETAMINE/METHAMPHETAMINE NEG (NEG)
[2021-08-08 01:01] LABS: POTASSIUM 2.8 mmol/L (3.5-5.1)
[2021-08-08] MEDS ORDERED: POTASSIUM CHLORIDE 20 MEQ TABLET.ER. PO ONE ×2 (01:15→02:15)
--- NOTE | 2021-08-08 03:54 | EKG ---
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
[2021-08-08 04:08] VITALS: BP 105/53
--- NOTE | 2021-08-08 04:44 | EKG ---
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
== END 2021-08-08 05:09 | disposition home or self-care (01) ==
LOC: ER 23:27
DX: S30.1XXA Contusion of abdominal wall, initial encounter (principal); S09.90XA Unspecified injury of head, initial encounter; F10.229 Alcohol dependence with intoxication, unspecified; E87.6 Hypokalemia; I10 Essential (primary) hypertension; I25.2 Old myocardial infarction; F17.210 Nicotine dependence, cigarettes, uncomplicated; W18.39XA Other fall on same level, initial encounter; Y90.8 Blood alcohol level of 240 mg/100 ml or more; Y93.89 Activity, other specified; Y92.89 Other specified places as the place of occurrence of the external cause; Y99.8 Other external cause status
CPT/HCPCS: 36415; 70450; 71045; 71260; 72125; 74177; 80048; 80076; 80307; 81001; 82550; 83690; 83735; 83880; 84443; 84484; 85025; 85610; 85730; 93005; 96365; 96366; 99285; G0480; J7120; Q9967